=== PATIENT | female | born 1945 | race Caucasian/White ===

== ENCOUNTER 2016-08-02 18:51 | Emergency (ER) | payer MEDICARE, OTHER ==
--- NOTE | 2016-08-02 19:59 | ER Document Report ---
ED Medical Screen (RME) - General Stated Complaint: HEADACHE Time seen by provider: 19:56 Mode of Arrival: Ambulatory Information source: Patient Notes: 70-year-old female presents to ED for headache is not like her usual headaches. She states they usually start with tension this one feels like the blood vessels of blowing up in her head and her blood pressures been higher than normal. Patient states she's been nauseated, sensitive to light and noise, states she had some or perirectal up in her mouth but it didn't really throw up completely. States she's been treated by a neurologist for neck pain. She had a plate and 2 screws in her neck last year. Consulted Dr. Echevarria will get a CAT scan of the head. I have greeted and performed a rapid initial assessment of this patient. A comprehensive ED assessment and evaluation of the patient, analysis of test results and completion of medical decision making process will be conducted by an additional ED providers. TRAVEL OUTSIDE OF THE [place] IN LAST 30 DAYS: No - Related Data Allergies/Adverse Reactions: Penicillins Allergy (Severe, Verified 05/01/16 11:25) rash at site of contact latex Allergy (Verified 05/01/16 11:25) peanut Allergy (Verified 05/01/16 11:25) Trouble Breathing/Wheezing wheat Allergy (Verified 05/01/16 11:25) Trouble Breathing/Wheezing Metals Allergy (Intermediate, Uncoded 05/01/16 11:25) reports rash at site of contact Past Medical History - Past Medical History Cardiac Medical History: Reports: Hx Hypertension, Hx Heart Murmur Denies: Hx Atrial Fibrillation, Hx Congestive Heart Failure, Hx Coronary Artery Disease, Hx Heart Attack, Hx Hypercholesterolemia, Hx Peripheral Vascular Disease, Hx Pulmonary Embolism Pulmonary Medical History: Reports: Hx Asthma - uses inhalers, Hx Bronchitis, Hx COPD - DX ABOUT 20 YEARS AGO, Hx Pneumonia, Hx Sleep Apnea - does not use CPAP Denies: Hx Respiratory Failure, Hx Tuberculosis Neurological Medical History: Reports: Hx Migraine. Denies: Hx Cerebrovascular Accident, Hx Seizures Endocrine Medical History: Renal/ Medical History: Denies: Hx End Stage Renal Disease, Hx Kidney Stones, Hx Ovarian Cysts, Hx Peritoneal Dialysis, Hx Pelvic Inflammatory Disease Malignancy Medical History: Denies: Hx Breast Cancer, Hx Cervical Cancer, Hx Leukemia, Hx Lung Cancer, Hx Ovarian Cancer GI Medical History: Reports: Hx Diverticulitis, Hx Gastroesophageal Reflux Disease - 30 years-takes med, Hx Hiatal Hernia - "sliding", Hx Irritable Bowel. Denies: Hx Crohn's Disease, Hx Liver Failure, Hx Ulcer Musculoskeltal Medical History: Reports Hx Arthritis - DDD, Reports Hx Fibromyalgia - 20 yrs, Denies Hx Multiple Sclerosis, Denies Hx Muscular Dystrophy Psychiatric Medical History: Reports: Hx Anxiety, Hx Attention Deficit Hyperactivity Disorder, Hx Depression - Anxiety, Hx Post Traumatic Stress Disorder Denies: Hx Bipolar Disorder, Hx Dementia, Hx Schizophrenia Traumatic Medical History: Reports: Hx Fractures - neck-40 yrs ago Infectious Medical History: Denies: Hx HIV Past Surgical History: Reports: Hx Hysterectomy - partial, Hx Orthopedic Surgery - Right knee, Hx Tonsillectomy - as an adult. Denies: Hx Adenoidectomy , Hx Appendectomy - ? removed during hysterectomy ?, Hx Bowel Surgery, Hx Section, Hx Cholecystectomy, Hx Colostomy, Hx Coronary Artery Bypass Graft, Hx Gastric Bypass Surgery, Hx Herniorrhaphy, Hx Mastectomy, Hx Pacemaker , Hx Tubal Ligation - Immunizations Hx Diphtheria, Pertussis, Tetanus Vaccination: Yes Physical Exam - Vital signs Vitals: Temp Pulse Resp BP Pulse Ox 98.1 F 86 18 155/92 H 95 08/02/16 19:49 08/02/16 19:49 08/02/16 19:49 08/02/16 19:49 08/02/16 19:49 Course - Vital Signs Vital signs: Temp Pulse Resp BP Pulse Ox 98.1 F 86 18 155/92 H 95 08/02/16 19:49 08/02/16 19:49 08/02/16 19:49 08/02/16 19:49 08/02/16 19:49
[2016-08-03] MEDS ORDERED: KETOROLAC TROMETHAMINE INJ/PF 30 MG/1 ML SDV IV ONE (01:06)
[2016-08-03] MEDS ORDERED: PROCHLORPERAZINE EDISYLATE INJ 10 MG/2 ML VIAL IV ONE (01:06)
[2016-08-03] MEDS ORDERED: DIPHENHYDRAMINE HCL 50 MG/ML VIAL IV ONE (01:07)
--- NOTE | 2016-08-03 01:57 | ER Document Report ---
ED General - General Chief Complaint: Headache Stated Complaint: HEADACHE Mode of Arrival: Ambulatory Notes: Patient is a 70-year-old female with past medical history of fibromyalgia, RA, chronic migraine headaches who presents with a headache that has been present for 24 hours. States that the headache started yesterday and became gradually worse after onset. She describes as a pain primarily located on the right side of her head. It is a dull, constant, severe, throbbing pain. Nothing improves the pain. States the lights, sounds, no movement worsening headache. States this feels identical to prior episodes of her migraine headaches. She has not seen her primary care physician regarding today's concerns. TRAVEL OUTSIDE OF THE [place] IN LAST 30 DAYS: No - Related Data Allergies/Adverse Reactions: Penicillins Allergy (Severe, Verified 08/02/16 19:57) rash at site of contact latex Allergy (Verified 08/02/16 19:57) peanut Allergy (Verified 08/02/16 19:57) Trouble Breathing/Wheezing wheat Allergy (Verified 08/02/16 19:57) Trouble Breathing/Wheezing Metals Allergy (Intermediate, Uncoded 08/02/16 19:57) reports rash at site of contact Past Medical History - General Information source: Patient - Social History Smoking Status: Never Smoker Chew tobacco use (# tins/day): No Frequency of alcohol use: None Drug Abuse: None Family History: Reviewed & Not Pertinent Patient has suicidal ideation: No Patient has homicidal ideation: No - Past Medical History Cardiac Medical History: Reports: Hx Hypertension, Hx Heart Murmur Denies: Hx Atrial Fibrillation, Hx Congestive Heart Failure, Hx Coronary Artery Disease, Hx Heart Attack, Hx Hypercholesterolemia, Hx Peripheral Vascular Disease, Hx Pulmonary Embolism Pulmonary Medical History: Reports: Hx Asthma - uses inhalers, Hx Bronchitis, Hx COPD - DX ABOUT 20 YEARS AGO, Hx Pneumonia, Hx Sleep Apnea - does not use CPAP Denies: Hx Respiratory Failure, Hx Tuberculosis Neurological Medical History: Reports: Hx Migraine. Denies: Hx Cerebrovascular Accident, Hx Seizures Endocrine Medical History: Renal/ Medical History: Denies: Hx End Stage Renal Disease, Hx Kidney Stones, Hx Ovarian Cysts, Hx Peritoneal Dialysis, Hx Pelvic Inflammatory Disease Malignancy Medical History: Denies: Hx Breast Cancer, Hx Cervical Cancer, Hx Leukemia, Hx Lung Cancer, Hx Ovarian Cancer GI Medical History: Reports: Hx Diverticulitis, Hx Gastroesophageal Reflux Disease - 30 years-takes med, Hx Hiatal Hernia - "sliding", Hx Irritable Bowel. Denies: Hx Crohn's Disease, Hx Liver Failure, Hx Ulcer Musculoskeltal Medical History: Reports Hx Arthritis - DDD, Reports Hx Fibromyalgia - 20 yrs, Denies Hx Multiple Sclerosis, Denies Hx Muscular Dystrophy Psychiatric Medical History: Reports: Hx Anxiety, Hx Attention Deficit Hyperactivity Disorder, Hx Depression - Anxiety, Hx Post Traumatic Stress Disorder Denies: Hx Bipolar Disorder, Hx Dementia, Hx Schizophrenia Traumatic Medical History: Reports: Hx Fractures - neck-40 yrs ago Infectious Medical History: Denies: Hx HIV Past Surgical History: Reports: Hx Hysterectomy, Hx Orthopedic Surgery - Right knee, Hx Tonsillectomy - as an adult. Denies: Hx Adenoidectomy, Hx Appendectomy - ? removed during hysterectomy ?, Hx Bowel Surgery, Hx Section, Hx Cholecystectomy, Hx Colostomy, Hx Coronary Artery Bypass Graft, Hx Gastric Bypass Surgery, Hx Herniorrhaphy, Hx Mastectomy, Hx Pacemaker, Hx Tubal Ligation - Immunizations Hx Diphtheria, Pertussis, Tetanus Vaccination: Yes Hx Pneumococcal Vaccination: 01/09/10 Review of Systems - Review of Systems Notes: Constitutional: Negative for fever. HENT: Negative for sore throat. Eyes: Negative for visual changes. Cardiovascular: Negative for chest pain. Respiratory: Negative for shortness of breath. Gastrointestinal: Negative for abdominal pain, vomiting or diarrhea. Genitourinary: Negative for dysuria. Musculoskeletal: Negative for back pain. Skin: Negative for rash. Neurological: Positive for headaches, negative for weakness or numbness. 10 point ROS negative except as marked above and in HPI. Physical Exam - Vital signs Vitals: Temp Pulse Resp BP Pulse Ox 98.1 F 86 18 155/92 H 95 08/02/16 19:49 08/02/16 19:49 08/02/16 19:49 08/02/16 19:49 08/02/16 19:49 Interpretation: Hypertensive Notes: PHYSICAL EXAMINATION: GENERAL: Appears uncomfortable but in no acute distress. HEAD: Atraumatic, normocephalic. EYES: Pupils equal round and reactive to light, extraocular movements intact, sclera anicteric, conjunctiva are normal. ENT: nares patent, oropharynx clear without exudates. Moist mucous membranes. NECK: Normal range of motion, supple without lymphadenopathy LUNGS: Breath sounds clear to auscultation bilaterally and equal. No wheezes rales or rhonchi. HEART: Regular rate and rhythm without murmurs ABDOMEN: Soft, nontender, normoactive bowel sounds. No guarding, no rebound. No masses appreciated. EXTREMITIES: Normal range of motion, no pitting or edema. No cyanosis. NEUROLOGICAL: Face symmetric. Tongue protrudes midline. Extraocular motions intact. Pupils are 2 mm and equally reactive. Normal speech, normal gait. 5 out of 5 strength in both the distal and proximal upper and lower extremities bilaterally. Sensation is grossly intact throughout. Finger to nose testing normal. Pronator drift normal. PSYCH: Normal mood, normal affect. SKIN: Warm, Dry, normal turgor, no rashes or lesions noted. Course - Re-evaluation Re-evalutation: 08/03/16 01:56 Presentation of a headache that appears to be most consistent with tension versus migrainous type headache. Of note, contrary to triage note patient states that this migraine headache feels exactly like her prior migraine headaches. I do not believe a CT the head was indicated. Headache was not maximal in onset, patient has no focal neurologic deficits, no nuchal rigidity, vital signs within normal limits, no papilledema, and patient is overall well in appearance. Based on clinical history and examination I do not suspect an acute subarachnoid hemorrhage, dural venous sinus thrombosis, acute meningitis, or intercranial mass. Will proceed with headache cocktail and reassess. 08/03/16 02:39 Patient has had a complete resolution of her headache. She remains neurologically intact. Has tolerated oral intake. At this time will discharge with return precautions and follow-up recommendations. Verbal discharge instructions given a the bedside and opportunity for questions given. Medication warnings reviewed. Patient is in agreement with this plan and has verbalized understanding of return precautions and the need for primary care follow-up in the next 24-72 hours. - Vital Signs Vital signs: Temp Pulse Resp BP Pulse Ox 98.4 F 79 16 118/78 97 08/03/16 03:20 08/03/16 03:20 08/03/16 03:20 08/03/16 03:20 08/03/16 03:20 - Diagnostic Test Radiology reviewed: Reports reviewed Discharge - Discharge Clinical Impression: Migraine headache Qualifiers: Migraine type: unspecified Status migrainosus presence: with status migrainosus Intractability: not intractable Qualified Code(s): G43.901 - Migraine, unspecified, not intractable, with status migrainosus Condition: Good Disposition: HOME, SELF-CARE Additional Instructions: You were seen today for a migraine headache. Please follow-up with your primary care doctor regarding today's ED visit. Return to emergency department immediately if you develop a headache that gets to its maximum severity within 20 minutes of onset, you pass out, you develop weakness, numbness, changes in your vision, become unable to keep any fluids down for more than 12 hours, or develop a fever greater than 100.4 degrees Fahrenheit. Referrals: ALPHONSE GABRIEL PA-C [Primary Care Provider] - Follow up as needed
[2016-08-03 03:44] VITALS: BP 118/78
== END 2016-08-03 03:25 | disposition home or self-care (01) ==
LOC: ER 18:51
DX: G43.901 Migraine, unspecified, not intractable, with status migrainosus (principal); I10 Essential (primary) hypertension; J45.909 Unspecified asthma, uncomplicated; J44.9 Chronic obstructive pulmonary disease, unspecified; Z88.0 Allergy status to penicillin; Z91.040 Latex allergy status; Z91.010 Allergy to peanuts; Z90.710 Acquired absence of both cervix and uterus
CPT/HCPCS: 99283; 96374; 96375; 70450; J1200; J1885; J0780

== ENCOUNTER 2016-11-20 09:41 | Inpatient (IN) | payer MEDICARE, OTHER ==
[2016-11-20 10:19] LABS: VENOUS BLOOD BASE EXCESS 4.9 mmol/L; VENOUS BLOOD HCO3 30.2 mmol/L (20-32); VENOUS BLOOD PH 7.42 (7.30-7.42)
[2016-11-20 10:26] LABS: ABSOLUTE LYMPHOCYTES (AUTO) 0.7 10^3/uL (0.5-4.7); ABSOLUTE MONOCYTES (AUTO) 0.8 10^3/uL (0.1-1.4); BASOPHILS % (AUTO) 0.5 % (0-2); EOSINOPHILS % (AUTO) 0.2 % (0-6); HEMATOCRIT 30.2 % (36.0-47.0); HEMOGLOBIN 10.2 g/dL (12.0-15.5); HGB HCT DIFFERENCE 0.4; LYMPHOCYTES % (AUTO) 6.7 % (13-45); MEAN CORPUSCULAR HEMOGLOBIN 28.1 pg (27.0-33.4); MEAN CORPUSCULAR HGB CONC 33.7 g/dL (32.0-36.0); MEAN CORPUSCULAR VOLUME 83 fl (80-97); MONOCYTES % (AUTO) 7.2 % (3-13); RED BLOOD COUNT 3.63 10^6/uL (3.72-5.28); RED CELL DISTRIBUTION WIDTH 14.8 % (11.5-14.0); SEGMENTED NEUTROPHILS % (AUTO) 85.4 % (42-78); WHITE BLOOD COUNT 10.6 10^3/uL (4.0-10.5)
[2016-11-20] MEDS ORDERED: ACETAMINOPHEN 325 MG TABLET PO ONE (10:26)
[2016-11-20] MEDS ORDERED: ACETAMINOPHEN 325 MG TABLET ONE (10:27)
[2016-11-20 10:28] LABS: PROTHROMBIN TIME 15.6 SEC (11.4-15.4)
--- NOTE | 2016-11-20 10:34 | ER Document Report ---
ED General - General Chief Complaint: Trouble Voiding Stated Complaint: CHEST PAIN Time Seen by Provider: 11/20/16 09:56 Mode of Arrival: Medic Information source: Patient Notes: 70 yr odl female presents with complaints of right flank pain RUQ pain and fever of 4 day duration. pt admits to nausea , denies any chills TRAVEL OUTSIDE OF THE [place] IN LAST 30 DAYS: No - HPI Onset: Last week Onset/Duration: Persistent Quality of pain: No pain Severity: Mild Pain Level: 1 Associated symptoms: Fever Exacerbated by: Denies Relieved by: Denies Similar symptoms previously: No Recently seen / treated by doctor: No - Related Data Allergies/Adverse Reactions: Penicillins Allergy (Severe, Verified 08/02/16 19:57) rash at site of contact latex Allergy (Verified 08/02/16 19:57) peanut Allergy (Verified 08/02/16 19:57) Trouble Breathing/Wheezing wheat Allergy (Verified 08/02/16 19:57) Trouble Breathing/Wheezing Metals Allergy (Intermediate, Uncoded 08/02/16 19:57) reports rash at site of contact Past Medical History - Social History Smoking Status: Never Smoker Cigarette use (# per day): No Chew tobacco use (# tins/day): No Smoking Education Provided: No Family History: Reviewed & Not Pertinent - Past Medical History Cardiac Medical History: Reports: Hx Hypertension, Hx Heart Murmur Denies: Hx Atrial Fibrillation, Hx Congestive Heart Failure, Hx Coronary Artery Disease, Hx Heart Attack, Hx Hypercholesterolemia, Hx Peripheral Vascular Disease, Hx Pulmonary Embolism Pulmonary Medical History: Reports: Hx Asthma - uses inhalers, Hx Bronchitis, Hx COPD - DX ABOUT 20 YEARS AGO, Hx Pneumonia, Hx Sleep Apnea - does not use CPAP Denies: Hx Respiratory Failure, Hx Tuberculosis Neurological Medical History: Reports: Hx Migraine. Denies: Hx Cerebrovascular Accident, Hx Seizures Endocrine Medical History: Renal/ Medical History: Denies: Hx End Stage Renal Disease, Hx Kidney Stones, Hx Ovarian Cysts, Hx Peritoneal Dialysis, Hx Pelvic Inflammatory Disease Malignancy Medical History: Denies: Hx Breast Cancer, Hx Cervical Cancer, Hx Leukemia, Hx Lung Cancer, Hx Ovarian Cancer GI Medical History: Reports: Hx Diverticulitis, Hx Gastroesophageal Reflux Disease - 30 years-takes med, Hx Hiatal Hernia - "sliding", Hx Irritable Bowel. Denies: Hx Crohn's Disease, Hx Liver Failure, Hx Ulcer Musculoskeltal Medical History: Reports Hx Arthritis - DDD, Reports Hx Fibromyalgia - 20 yrs, Denies Hx Multiple Sclerosis, Denies Hx Muscular Dystrophy Psychiatric Medical History: Reports: Hx Anxiety, Hx Attention Deficit Hyperactivity Disorder, Hx Depression - Anxiety, Hx Post Traumatic Stress Disorder Denies: Hx Bipolar Disorder, Hx Dementia, Hx Schizophrenia Traumatic Medical History: Reports: Hx Fractures - neck-40 yrs ago Infectious Medical History: Denies: Hx HIV Past Surgical History: Reports: Hx Hysterectomy, Hx Orthopedic Surgery - Right knee, Hx Tonsillectomy - as an adult. Denies: Hx Adenoidectomy, Hx Appendectomy - ? removed during hysterectomy ?, Hx Bowel Surgery, Hx Section, Hx Cholecystectomy, Hx Colostomy, Hx Coronary Artery Bypass Graft, Hx Gastric Bypass Surgery, Hx Herniorrhaphy, Hx Mastectomy, Hx Pacemaker, Hx Tubal Ligation - Immunizations Hx Diphtheria, Pertussis, Tetanus Vaccination: Yes Hx Pneumococcal Vaccination: 01/09/10 Review of Systems - Review of Systems Notes: REVIEW OF SYSTEMS: CONSTITUTIONAL : admits to fever EENT: Denies eye, ear, throat, or mouth pain or symptoms. Denies nasal or sinus congestion or discharge. Denies throat, tongue, or mouth swelling or difficulty swallowing. CARDIOVASCULAR: Denies chest pain. Denies palpitations or racing or irregular heart beat. Denies ankle edema. RESPIRATORY: Denies cough, cold, or chest congestion. Denies shortness of breath, difficulty breathing, or wheezing. GASTROINTESTINAL: Denies abdominal pain or distention. Denies nausea, vomiting , or diarrhea. Denies blood in vomitus, stools, or per rectum. Denies black, tarry stools. Denies constipation. GENITOURINARY: right flank pain FEMALE GENITOURINARY: Denies vaginal bleeding, heavy or abnormal periods, irregular periods. Denies vaginal discharge or odor. MUSCULOSKELETAL: Denies back or neck pain or stiffness. Denies joint pain or swelling. SKIN: Denies rash, lesions or sores. HEMATOLOGIC : Denies easy bruising or bleeding. LYMPHATIC: Denies swollen, enlarged glands. NEUROLOGICAL: Denies confusion or altered mental status. Denies passing out or loss of consciousness. Denies dizziness or lightheadedness. Denies headache. Denies weakness or paralysis or loss of use of either side. Denies problems with gait or speech. Denies sensory loss, numbness, or tingling. Denies seizures. PHYSICAL EXAMINATION: GENERAL: Well-appearing, well-nourished and in no acute distress. febrile HEAD: Atraumatic, normocephalic. EYES: Pupils equal round and reactive to light, extraocular movements intact, conjunctiva are normal. ENT: Nares patent, oropharynx clear without exudates. Moist mucous membranes. NECK: Normal range of motion, supple without lymphadenopathy LUNGS: Breath sounds clear to auscultation bilaterally and equal. No wheezes rales or rhonchi. HEART: Regular rate and rhythm without murmurs ABDOMEN: Soft, RUQ tenderness , right cva tenderenss Female : deferred Musculoskeletal: Normal range of motion, no pitting or edema. No cyanosis. NEUROLOGICAL: Cranial nerves grossly intact. Normal speech, normal gait. Normal sensory, motor exams PSYCH: Normal mood, normal affect. SKIN: Warm, Dry, normal turgor, no rashes or lesions noted. PSYCHIATRIC: Denies anxiety or stress. Denies depression, suicidal ideation, or homicidal ideation. ALL OTHER SYSTEMS REVIEWED AND NEGATIVE. Dictation was performed using [employer] voice recognition software Physical Exam - Vital signs Vitals: Temp Pulse Resp BP Pulse Ox 103 F H 98 20 105/65 100 11/20/16 10:23 11/20/16 10:23 11/20/16 10:23 11/20/16 10:23 11/20/16 10:23 Course - Re-evaluation Re-evalutation: 11/20/16 10:33 Patient was noted to be hypotensive at urgent care prior to arrival, septic workup pending - Vital Signs Vital signs: Temp Pulse Resp BP Pulse Ox 98.4 F 98 20 105/65 100 11/20/16 11:56 11/20/16 10:23 11/20/16 10:23 11/20/16 10:23 11/20/16 10:23 - Laboratory Result Diagrams: 11/20/16 09:35 11/20/16 09:35 Laboratory results interpreted by me: 11/20/16 11/20/16 11/20/16 09:35 09:35 09:35 WBC 10.6 H RBC 3.63 L Hgb 10.2 L Hct 30.2 L RDW 14.8 H Plt Count 103 L Seg Neutrophils % 85.4 H Lymphocytes % 6.7 L Absolute Neutrophils 9.0 H PT 15.6 H Sodium 118.3 L* Chloride 86 L BUN 21 H Creatinine 2.02 H Est GFR ( Amer) 30 L Est GFR (Non-Af Amer) 24 L Lactic Acid Calcium 8.1 L Total Protein 4.9 L Albumin 2.5 L Urine Protein Urine Blood Ur Leukocyte Esterase 11/20/16 11/20/16 09:35 11:12 WBC RBC Hgb Hct RDW Plt Count Seg Neutrophils % Lymphocytes % Absolute Neutrophils PT Sodium Chloride BUN Creatinine Est GFR ( Amer) Est GFR (Non-Af Amer) Lactic Acid 0.6 L Calcium Total Protein Albumin Urine Protein 100 H Urine Blood SMALL H Ur Leukocyte Esterase LARGE H Critical Care Note - Critical Care Note Total time excluding time spent on procedures (mins): 34 Comments: minutes of critical care time spent in direct contact evaluating and reevaluating the patient, treating symptoms, reviewing labs and studies and speaking with family and consultants excluding any procedures Discharge - Discharge Clinical Impression: Pyelonephritis, Hyponatremia Fever Qualifiers: Fever type: unspecified Qualified Code(s): R50.9 - Fever, unspecified Hypotension Qualifiers: Hypotension type: unspecified hypotension type Qualified Code(s): I95.9 - Hypotension, unspecified Condition: Stable Disposition: ADMITTED INPATIENT Admitting Provider: Hospitalist Unit Admitted: Telemetry
[2016-11-20 10:38] LABS: ALANINE AMINOTRANSFERASE 28 U/L (9-52); ALBUMIN 2.5 g/dL (3.5-5.0); ALKALINE PHOSPHATASE 69 U/L (38-126); ANION GAP 5 (5-19); ASPARTATE AMINO TRANSFERASE 18 U/L (14-36); BILIRUBIN,DIRECT 0.3 mg/dL (0.0-0.4); BILIRUBIN,TOTAL 0.4 mg/dL (0.2-1.3); BLOOD UREA NITROGEN 21 mg/dL (7-20); CALCIUM 8.1 mg/dL (8.4-10.2); CARBON DIOXIDE 27 mmol/L (22-30); CHLORIDE 86 mmol/L (98-107); CREATININE RESULT 2.02 mg/dL (0.52-1.25); GLUCOSE 100 mg/dL (75-110); POTASSIUM 4.8 mmol/L (3.6-5.0); TOTAL PROTEIN 4.9 g/dL (6.3-8.2)
[2016-11-20 10:42] LABS: SODIUM 118.3 mmol/L (137-145)
[2016-11-20] MEDS ORDERED: NORMAL SALINE 1000 ML 1,000 ML IV PRN (10:44)
[2016-11-20 11:32] LABS: APPEARANCE,URINE TURBID; BILIRUBIN,URINE NEGATIVE (NEGATIVE); GLUCOSE, URINE NEGATIVE (NEGATIVE); KETONES,URINE NEGATIVE (NEGATIVE); LEUKOCYTE ESTERASE,URINE LARGE (NEGATIVE); NITRITE,URINE NEGATIVE (NEGATIVE); PROTEIN,URINE 100 mg/dL (NEGATIVE); URINE SPECIFIC GRAVITY 1.004; UROBILINOGEN,URINE NEGATIVE mg/dL (<2.0)
--- NOTE | 2016-11-20 11:35 | RADIOLOGY REPORT (SQ) ---
EXAM DESCRIPTION: CHEST PA/LAT COMPLETED DATE/TIME: 11/20/2016 10:58 am REASON FOR STUDY: temp COMPARISON: April 2016 EXAM PARAMETERS: NUMBER OF VIEWS: two views TECHNIQUE: Digital Frontal and Lateral radiographic views of the chest acquired. RADIATION DOSE: NA LIMITATIONS: none FINDINGS: LUNGS AND PLEURA: There is some minimal ill-defined increased density in the left lower eileen ng field which I cannot exclude as a developing infiltrate or atelectatic changes. Remaining lung fi elds are clear. No pleural effusions are identified. No pneumothorax is seen. MEDIASTINUM AND HILAR STRUCTURES: No masses or contour abnormalities. HEART AND VASCULAR STRUCTURES: Heart normal size. No evidence for failure. BONES: No acute findings. HARDWARE: None in the chest. OTHER: No other significant finding. IMPRESSION: Minimal left basilar density as noted above. Remaining lung sierra are clear. Other fi ndings as noted above TECHNICAL DOCUMENTATION: JOB ID: [id number] [employer]- All Rights Reserved
[2016-11-20] MEDS ORDERED: CEFTRIAXONE 1 GM/D5W RTU 50 ML IV ONE (12:07)
[2016-11-20] MEDS ORDERED: MORPHINE SULFATE 10 MG/ML INJ IV ONE (12:12)
[2016-11-20] MEDS ORDERED: ZOLPIDEM TARTRATE 5 MG TABLET PO PRN (12:30)
[2016-11-20] MEDS ORDERED: MAGNESIUM HYDROXIDE SUSP 30 ML UDCUP PO PRN (12:30)
[2016-11-20] MEDS ORDERED: OXYCODONE-ACETAMINOPHEN 5-325 MG TABLET PO PRN (12:30)
[2016-11-20] MEDS ORDERED: ACETAMINOPHEN 325 MG TABLET PO PRN (12:30)
[2016-11-20 14:45] LABS: ANION GAP 7 (5-19); BLOOD UREA NITROGEN 18 mg/dL (7-20); CALCIUM 7.9 mg/dL (8.4-10.2); CARBON DIOXIDE 25 mmol/L (22-30); CHLORIDE 90 mmol/L (98-107); CREATININE RESULT 1.53 mg/dL (0.52-1.25); GLUCOSE 100 mg/dL (75-110); POTASSIUM 4.2 mmol/L (3.6-5.0); SODIUM 121.6 mmol/L (137-145)
--- NOTE | 2016-11-20 15:18 | PDOC H&P ---
History of Present Illness Admission Date/PCP: 11/20/16 12:53 Patient complains of: Fever, trouble urinating and nausea x 4 days History of Present Illness: KIKE LATHAM is a 70 year old female with past medical history rheumatoid arthritis, fibromyalgia, GERD, migraines, essential hypertension, asthma and irritable bowel disorder; presents to [facility] emergency room this morning from a local urgent care after she presented with fever 4 days up to 103, and right flank pain. Her symptoms have worsened over time. She also complains of some nausea with no vomiting. She states she has not been eating or drinking well for the last 3 days. She denies any diarrhea or change in bowel habits. She also complains of some dizziness. She states she feels dehydrated. She is not on any suppressive therapy for her rheumatoid arthritis at the present time. She denies any prior history of urinary tract infections. Past Medical History Cardiac Medical History: Reports: Hypertension, Heart Murmur Denies: Atrial Fibrillation, Congestive Heart Failure, Coronary Artery Disease, Myocardial Infarction, Hyperlipidema, Peripheral Vascular Disease, Pulmonary Embolism Pulmonary Medical History: Reports: Asthma - uses inhalers, Bronchitis, Chronic Obstructive Pulmonary Disease (COPD) - DX ABOUT 20 YEARS AGO, Pneumonia, Sleep Apnea - does not use CPAP Denies: Respiratory Failure, Tuberculosis EENT Medical History: Reports: None Neurological Medical History: Reports: Migraine Denies: Seizures Endocrine Medical History: Reports: None Renal/ Medical History: Reports: None Denies: End Stage Renal Disease Malignancy Medical History: Reports: None Denies: Breast Cancer, Cervical Cancer, Leukemia, Lung Cancer, Ovarian Cancer GI Medical History: Reports: Diverticulitis, Gastroesophageal Reflux Disease - 30 years-takes med, Hiatal Hernia - "sliding" Denies: Crohn's Disease Musculoskeltal Medical History: Reports: Arthritis - DDD, Fibromyalgia - 20 yrs Skin Medical History: Reports: None Psychiatric Medical History: Reports: Attention Deficit Hyperactivity Disorder, Depression - Anxiety, Post Traumatic Stress Disorder Denies: Bipolar Disorder, Dementia Traumatic Medical History: Reports: None Hematology: Reports: Anemia Denies: Hemophilia, Sickle Cell Disease Infectious Medical History: Reports: None Denies: HIV Past Surgical History Past Surgical History: Reports: Hysterectomy, Orthopedic Surgery - Right knee, Tonsillectomy - as an adult Denies: Adenoidectomy, Amputation, Appendectomy - ? removed during hysterectomy ?, Section, Cholecystectomy, Colostomy, Coronary Artery Bypass Graft, Gastric Bypass Surgery, Herniorrhaphy, Mastectomy, Pacemaker, Tubal Ligation Social History Information Source: Patient Lives with: Alone Smoking Status: Never Smoker Frequency of Alcohol Use: None Hx Recreational Drug Use: No Hx Prescription Drug Abuse: No - Advance Directive Resuscitation Status: Do Not Resuscitate Family History Family History: Hypertension Parental Family History Reviewed: Yes Children Family History Reviewed: NA Sibling(s) Family History Reviewed.: Yes Medication/Allergy Allergies/Adverse Reactions: Penicillins Allergy (Severe, Verified 08/02/16 19:57) rash at site of contact latex Allergy (Verified 08/02/16 19:57) peanut Allergy (Verified 08/02/16 19:57) Trouble Breathing/Wheezing wheat Allergy (Verified 08/02/16 19:57) Trouble Breathing/Wheezing Metals Allergy (Intermediate, Uncoded 08/02/16 19:57) reports rash at site of contact Review of Systems Constitutional: PRESENT: anorexia, chills, fatigue, fever(s), weakness Eyes: ABSENT: visual disturbances Ears: ABSENT: hearing changes Cardiovascular: ABSENT: chest pain, dyspnea on exertion, edema, orthropnea, palpitations Respiratory: ABSENT: cough, hemoptysis Gastrointestinal: PRESENT: nausea Genitourinary: PRESENT: difficulty urinating, dysuria, other Musculoskeletal: PRESENT: back pain Integumentary: ABSENT: rash, wounds Neurological: ABSENT: abnormal gait, abnormal speech, confusion, dizziness, focal weakness, syncope Psychiatric: ABSENT: anxiety, depression, homidical ideation, suicidal ideation Endocrine: ABSENT: cold intolerance, heat intolerance, polydipsia, polyuria Hematologic/Lymphatic: ABSENT: easy bleeding, easy bruising Physical Exam Vital Signs: Temp Pulse Resp BP Pulse Ox 98.4 F 98 12 104/64 97 11/20/16 11:56 11/20/16 10:23 11/20/16 14:01 11/20/16 14:01 11/20/16 14:01 General appearance: PRESENT: no acute distress, thin, well-developed, well- nourished Head exam: PRESENT: atraumatic, normocephalic Eye exam: PRESENT: conjunctiva pink, EOMI, PERRLA. ABSENT: scleral icterus Ear exam: PRESENT: normal external ear exam Mouth exam: PRESENT: moist, tongue midline Neck exam: ABSENT: carotid bruit, JVD, lymphadenopathy, thyromegaly Respiratory exam: PRESENT: clear to auscultation annita. ABSENT: rales, rhonchi, wheezes Cardiovascular exam: PRESENT: RRR. ABSENT: diastolic murmur, rubs, systolic murmur Pulses: PRESENT: normal dorsalis pedis pul Vascular exam: PRESENT: normal capillary refill GI/Abdominal exam: PRESENT: normal bowel sounds, soft. ABSENT: distended, guarding, mass, organolmegaly, rebound, tenderness Rectal exam: PRESENT: deferred Extremities exam: PRESENT: full ROM. ABSENT: calf tenderness, clubbing, pedal edema Musculoskeletal exam: PRESENT: ambulatory, tenderness Neurological exam: PRESENT: alert, awake, oriented to person, oriented to place , oriented to time, oriented to situation, CN II-XII grossly intact. ABSENT: motor sensory deficit Psychiatric exam: PRESENT: appropriate affect, normal mood. ABSENT: homicidal ideation, suicidal ideation Skin exam: PRESENT: dry, intact, warm. ABSENT: cyanosis, rash Results Impressions: Chest X-Ray 11/20/16 09:51 IMPRESSION: Minimal left basilar density as noted above. Remaining lung sierra are clear. Other findings as noted above Assessment & Plan - Diagnosis (1) SIRS (systemic inflammatory response syndrome) Is this a current diagnosis for this admission?: YesPlan: Patient presented with fever of 102.7, and hypotension. Most likely secondary to pyelonephritis and dehydration. Will rehydrate with IV fluids broad spectrum IV antibiotics once blood cultures are obtained (3) Pyelonephritis Is this a current diagnosis for this admission?: Yes (4) Hypotension Qualifiers: Hypotension type: unspecified hypotension type Qualified Code(s): I95.9 - Hypotension, unspecified Is this a current diagnosis for this admission?: YesPlan: Resolved with 2 liters of IV fluids. Most likely secondary to infection and poor oral intake for the last 4 days (5) ASHISH (acute kidney injury) Is this a current diagnosis for this admission?: YesPlan: Most likely prerenal secondary to hypotension and dehydration. Will rehydrate and monitor. Avoid nephrotoxic medications and dosages (6) Rheumatoid arthritis Is this a current diagnosis for this admission?: Yes (7) Rheumatoid arthritis Qualifiers: Rheumatoid factor presence: unspecified presence Is this a current diagnosis for this admission?: YesPlan: Patient is not on any suppressive therapy at the present time. She takes tylenol or oxycodone for her symptoms - Time Time Spent: 50 to 70 Minutes Critical Time spent with patient: 25-34 minutes Medications reviewed and adjusted accordingly: Yes Anticipated discharge: Home - Inpatient Certification Based on my medical assessment, after consideration of the patient's comorbidities, presenting symptoms, or acuity I expect that the services needed warrant INPATIENT care.: Yes I certify that my determination is in accordance with my understanding of Medicare's requirements for reasonable and necessary INPATIENT services [42 CFR 412.3e].: Yes Medical Necessity: Need For IV Fluids, Need for IV Antibiotics, Risk of Complication if Not Cared For in Hospital
[2016-11-20] MEDS: NORMAL SALINE 1000 ML 1,000 ML IV PRN (16:39)
[2016-11-20] MEDS: DOCUSATE SODIUM 100 MG CAPSULE PO SCH (18:34)
[2016-11-20 18:35] LABS: ANION GAP 11 (5-19); BLOOD UREA NITROGEN 17 mg/dL (7-20); CALCIUM 8.5 mg/dL (8.4-10.2); CARBON DIOXIDE 24 mmol/L (22-30); CHLORIDE 89 mmol/L (98-107); CREATININE RESULT 1.22 mg/dL (0.52-1.25); GLUCOSE 131 mg/dL (75-110); POTASSIUM 3.8 mmol/L (3.6-5.0); SODIUM 123.6 mmol/L (137-145)
[2016-11-20 22:17] LABS: ANION GAP 8 (5-19); BLOOD UREA NITROGEN 15 mg/dL (7-20); CALCIUM 8.3 mg/dL (8.4-10.2); CARBON DIOXIDE 25 mmol/L (22-30); CHLORIDE 92 mmol/L (98-107); CREATININE RESULT 1.12 mg/dL (0.52-1.25); GLUCOSE 139 mg/dL (75-110); POTASSIUM 3.9 mmol/L (3.6-5.0); SODIUM 124.8 mmol/L (137-145)
--- NOTE | 2016-11-21 00:19 | EKG REPORT ---
SEVERITY:- NORMAL ECG - SINUS RHYTHM : Confirmed by: Tamera Velazquez 21-Nov-2016 00:18:55
[2016-11-21] MEDS: NORMAL SALINE 1000 ML 1,000 ML IV PRN (04:44)
[2016-11-21 07:20] LABS: ALANINE AMINOTRANSFERASE 32 U/L (9-52); ALBUMIN 2.6 g/dL (3.5-5.0); ALKALINE PHOSPHATASE 85 U/L (38-126); ANION GAP 7 (5-19); ASPARTATE AMINO TRANSFERASE 17 U/L (14-36); BILIRUBIN,DIRECT 0.3 mg/dL (0.0-0.4); BILIRUBIN,TOTAL 0.3 mg/dL (0.2-1.3); BLOOD UREA NITROGEN 12 mg/dL (7-20); CALCIUM 8.6 mg/dL (8.4-10.2); CARBON DIOXIDE 26 mmol/L (22-30); CHLORIDE 97 mmol/L (98-107); CREATININE RESULT 0.91 mg/dL (0.52-1.25); GLUCOSE 106 mg/dL (75-110); POTASSIUM 4.7 mmol/L (3.6-5.0); SODIUM 129.9 mmol/L (137-145)
[2016-11-21 09:39] LABS: HEMATOCRIT 32.7 % (36.0-47.0); HEMOGLOBIN 10.9 g/dL (12.0-15.5); MEAN CORPUSCULAR HEMOGLOBIN 27.8 pg (27.0-33.4); MEAN CORPUSCULAR HGB CONC 33.4 g/dL (32.0-36.0); MEAN CORPUSCULAR VOLUME 83 fl (80-97); RED BLOOD COUNT 3.92 10^6/uL (3.72-5.28); RED CELL DISTRIBUTION WIDTH 14.9 % (11.5-14.0); WHITE BLOOD COUNT 9.3 10^3/uL (4.0-10.5)
[2016-11-21] MEDS ORDERED: DIAZEPAM 5 MG TABLET PO PRN (09:39)
[2016-11-21] MEDS ORDERED: HYDROXYZINE PAMOATE 25 MG CAPSULE PO PRN (09:39)
[2016-11-21] MEDS ORDERED: TIZANIDINE HCL 4 MG TABLET PO PRN (09:39)
[2016-11-21] MEDS ORDERED: OXYCODONE HCL IR 5 MG TABLET PO PRN (09:58)
--- NOTE | 2016-11-21 10:26 | PROGRESS NOTE E ---
Progress Note NAME: KIKE LATHAM : 1945 AGE: 70Y DATE: 11/21/2016 ROOM: 314 SUBJECTIVE: The patient is currently lying in bed. She states she feels much better today. According to her family member who is present at the bedside, the patient is much more lucid and had episodes of confusion yesterday which appears to have resolved. The patient denies any nausea, vomiting, diarrhea. No shortness of breath, dizziness, or chest pain. No fever or chills. The patient has been afebrile. Her blood pressures have been in a good range. The patient does not voice any other concerns at this time. REVIEW OF SYSTEMS: Rest of the review of systems negative. MEDICATIONS: Have been reviewed. OBJECTIVE: GENERAL: The patient is a 70-year-old female who is awake, alert, and oriented to person, place, time, and situation. She is verbal, conversational, ambulatory, and does not appear to be in any acute distress. VITAL SIGNS: Temperature 99.1, pulse 92, respirations 19, blood pressure 131/74, oxygen saturation is 97% on room air. SKIN: Warm and dry. No rash. Not diaphoretic. HEENT: Pupils equal, round, reactive to light and accommodation. Conjunctivae are pink. NECK: No JVP. CARDIOVASCULAR: Heart is regular with no murmur or rub. CHEST: Clear, symmetrical, unlabored. ABDOMEN: Soft, nontender, nondistended. BACK: No CVA tenderness or sacral edema. EXTREMITIES: No clubbing, cyanosis, or edema. PSYCHIATRIC: Appropriate affect. Pleasant mood. DIAGNOSTICS: Lab values are as follow: Hematology obtained on 11/21/2016 is pending. Chemistry obtained on 11/21/2016: Sodium 129, potassium 4.7, chloride is 97, carbon dioxide 26, BUN 12, creatinine is 0.91, glucose 106, calcium 8.6, bilirubin is 0.3, AST 17, ALT is 32, alk phos 85, total protein 5.0, albumin 2.6. IMPRESSION AND PLAN: 1. PYELONEPHRITIS. Currently awaiting urine culture. Will continue Rocephin for now since the patient has been responsive to this and await culture and sensitivity. 2. GRAM NEGATIVE YUDI BACTEREMIA MOST LIKELY SECONDARY TO #1. Will continue Rocephin for now since the patient has shown improvement in symptoms. Repeat blood cultures and follow. 3. SIRS SECONDARY TO THE ABOVE PER HER OWN ADMISSION. Will continue IV antibiotic therapy and follow. 4. ACUTE KIDNEY INJURY MOST LIKELY PRERENAL AZOTEMIA SECONDARY TO DEHYDRATION. The patient's creatinine has returned to baseline, therefore, will discontinue IV fluids after the current bag is completed. 5. RHEUMATOID ARTHRITIS. Will continue the patient's home medications for pain. 6. HYPONATREMIA. Most likely this is secondary to diuretic therapy. Will repeat chemistries in the a.m. and follow. 7. OPIATE DEPENDENCY. Will continue the patient's home medications. 8. POLYPHARMACY. Will monitor judiciously given the patient's recent confusion. 9. DVT PROPHYLAXIS. Will continue Lovenox. DISPOSITION: The patient is a FULL CODE. Pending patient's symptomatology and diagnostic findings, will reevaluate in the a.m. Time spent on this followup including assessment, plan, physical examination, patient education is 25 minutes. DICTATING PHYSICIAN: ALFONZO BLANTON NP [id number] PHY#: [id number] ID: [id number] JOB#: [id number] ACCT: [id number] cc: > MTDD
[2016-11-21 10:37] LABS: ACANTHOCYTES SLIGHT; BAND NEUTROPHILS % (MANUAL) 2 % (3-5); BASOPHILS % (MANUAL) 0 % (0-2); BURR CELLS 1+; EOSINOPHILS % (MANUAL) 0 % (0-6); HYPOCHROMASIA SLIGHT; LYMPHOCYTES % (MANUAL) 0 % (13-45); OVALOCYTES 1+; POIKILOCYTOSIS 2+; SCHISTOCYTES 1+; TOTAL CELLS COUNTED 100
[2016-11-21 10:38] LABS: POLYCHROMASIA SLIGHT; TOXIC GRANULATION SLIGHT; TOXIC VACUOLATION PRESENT
[2016-11-21] MEDS: DOCUSATE SODIUM 100 MG CAPSULE PO SCH ×2 (10:45→16:50)
[2016-11-21] MEDS: ASPIRIN 81 MG TABLET, ENT COATED PO SCH (10:45)
[2016-11-21] MEDS: CEFTRIAXONE 1 GM/D5W RTU 1 GM/50 ML RTUPB IV SCH (10:46)
[2016-11-21] MEDS: ENOXAPARIN SODIUM INJ 30 MG/0.3 ML DISP.SYRIN SUBCUT SCH (10:54)
[2016-11-21] MEDS ORDERED: VALSARTAN 40 MG TABLET PO ONE (11:00)
[2016-11-21] MEDS: ONDANSETRON HCL INJ/PF 4 MG/2 ML SDV IV PRN (16:51)
[2016-11-21] MEDS: GABAPENTIN 300 MG CAPSULE PO SCH (22:18)
[2016-11-21] MEDS: TRAZODONE HCL 50 MG TABLET PO SCH (22:22)
[2016-11-22 05:20] LABS: ANION GAP 7 (5-19); BLOOD UREA NITROGEN 6 mg/dL (7-20); CALCIUM 8.8 mg/dL (8.4-10.2); CARBON DIOXIDE 28 mmol/L (22-30); CHLORIDE 96 mmol/L (98-107); CREATININE RESULT 0.66 mg/dL (0.52-1.25); GLUCOSE 100 mg/dL (75-110); MAGNESIUM 1.8 mg/dL (1.6-2.3); SODIUM 130.5 mmol/L (137-145)
[2016-11-22] MEDS: ENOXAPARIN SODIUM INJ 30 MG/0.3 ML DISP.SYRIN SUBCUT SCH (08:43)
[2016-11-22] MEDS: LANSOPRAZOLE 30 MG TAB.RAP.DR PO SCH (08:43)
[2016-11-22] MEDS: VALSARTAN 40 MG TABLET PO SCH (10:34)
[2016-11-22] MEDS: ASPIRIN 81 MG TABLET, ENT COATED PO SCH (10:34)
[2016-11-22] MEDS: CEFTRIAXONE 1 GM/D5W RTU 1 GM/50 ML RTUPB IV SCH (10:34)
[2016-11-22] MEDS: DOCUSATE SODIUM 100 MG CAPSULE PO SCH ×2 (10:35→17:16)
--- NOTE | 2016-11-22 11:53 | PROGRESS NOTE E ---
Progress Note NAME: KIKE LATHAM : 1945 AGE: 70Y DATE: 11/22/2016 ROOM: 314 SUBJECTIVE: The patient is currently lying in bed. She states she feels much better than she did yesterday. She denies any nausea, vomiting. No diarrhea, shortness of breath, dizziness, chest pain. No fevers, chills. The patient has been afebrile. Her blood pressure has been in a good range, and the patient does not voice any other concerns at this time. REVIEW OF SYSTEMS: The rest of the review of systems is negative. MEDICATIONS: Medications have been reviewed. OBJECTIVE: GENERAL: The patient is a 70-year-old female who is awake, alert, and oriented to person, place, time, and situation. She is verbal and conversational with just a little delay. She does not appear to be in any acute distress. VITAL SIGNS: Temperature is 98.8, pulse 85, respirations 16, blood pressure is 137/73, oxygen saturation is 95% on room air. SKIN: Warm and dry. No rash. She is not diaphoretic. HEENT: Pupils equal, round, and reactive to light and accommodation. Conjunctivae pink. NECK: No JVD. CARDIOVASCULAR SYSTEM: Heart is regular. There is no murmur or rub. CHEST: Clear, symmetrical, unlabored. ABDOMEN: Soft, nontender, and nondistended. BACK: No CVA tenderness or sacral edema. EXTREMITIES: No clubbing, cyanosis, edema. PSYCHIATRIC: Appropriate affect, pleasant mood. DIAGNOSTIC DATA: Lab values are as follows: Hematology obtained on 11/21/2016: WBC's are 9.3; hemoglobin is 10.9; hematocrit is 32.7; platelet count is 96,000. Chemistries obtained on 11/22/2016: Sodium is 135, potassium is 4.0, chloride is 96, carbon dioxide 28, BUN 6, creatinine is 0.68, glucose 100, calcium is 8.8, magnesium is 1.8. Microbiology: Blood cultures obtained on 11/20/2016 reveal E. coli. Urine culture obtained on 11/20/2016 reveals E. coli. IMPRESSION AND PLAN: 1. PYELONEPHRITIS. The patient has responded nicely to Rocephin. It does appear to be a wilks-sensitive E. coli. Will complete 3 days of IV antibiotic therapy and follow. 2. E. COLI BACTEREMIA SECONDARY TO #1. Once again, will continue Rocephin for now. The patient has had resolution of her symptoms. Will repeat blood cultures and follow. 3. SIRS SECONDARY PER THE ABOVE, PRESENT ON ADMISSION. Will continue IV antibiotic therapy and follow. 4. ACUTE KIDNEY INJURY, MOST LIKELY PRERENAL AZOTEMIA SECONDARY TO DEHYDRATION. Patient's creatinine has returned to baseline, therefore, IV antibiotics have been discontinued. Will follow. 5. RHEUMATOID ARTHRITIS. Will continue the patient's home medication. 6. HYPONATREMIA. FEEL THIS IS MOST LIKELY SECONDARY TO HYDROCHLOROTHIAZIDE. THIS HAS IMPROVED WITH STOPPING MEDICATIONS. Will follow this. 7. OPIOID DEPENDENCY. Will continue the patient's home medication. 8. POLYPHARMACY. Will monitor judiciously given the patient's recent confusion. 9. DVT PROPHYLAXIS. Will continue Lovenox. DISPOSITION: The patient is a FULL CODE. Pending the patient's symptomatology and diagnostic findings, will reevaluate in the a.m. for possible discharge. The patient can be downgraded to a medical bed. TIME: Time spent on this followup including assessment, plan, physical examination, and patient education was 25 minutes. DICTATING PHYSICIAN: ALFONZO BLANTON NP [id number] PHY#: [id number] ID: [id number] JOB#: [id number] ACCT: [id number] cc: >
[2016-11-22] MEDS: TRAZODONE HCL 50 MG TABLET PO SCH (21:56)
[2016-11-22] MEDS: GABAPENTIN 300 MG CAPSULE PO SCH (21:56)
[2016-11-23] MEDS: ENOXAPARIN SODIUM INJ 30 MG/0.3 ML DISP.SYRIN SUBCUT SCH (09:25)
[2016-11-23] MEDS: CEFTRIAXONE 1 GM/D5W RTU 1 GM/50 ML RTUPB IV SCH (09:29)
[2016-11-23] MEDS: DOCUSATE SODIUM 100 MG CAPSULE PO SCH ×2 (09:30→17:13)
[2016-11-23] MEDS: ASPIRIN 81 MG TABLET, ENT COATED PO SCH (09:30)
[2016-11-23] MEDS: VALSARTAN 40 MG TABLET PO SCH (09:30)
[2016-11-23] MEDS: LANSOPRAZOLE 30 MG TAB.RAP.DR PO SCH (09:30)
[2016-11-23] MEDS ORDERED: ALBUTEROL SULFATE 0.042% NEB (1.25 MG/3 ML) AMPUL NEB PRN (10:02)
[2016-11-23] MEDS ORDERED: METHYLPREDNISOLONE INJ 40 MG/1 ML SDV IV ONE (10:15)
[2016-11-23] MEDS ORDERED: ALBUTEROL SULFATE 0.083% NEB 2.5 MG/3 ML AMPUL NEB ONE (10:15)
[2016-11-23] MEDS: AZITHROMYCIN 500 MG in DEXTROSE 5%-WATER 250 ML IV SCH (10:37)
--- NOTE | 2016-11-23 11:02 | RADIOLOGY REPORT (SQ) ---
EXAM DESCRIPTION: CHEST PA/LAT COMPLETED DATE/TIME: 11/23/2016 10:54 am REASON FOR STUDY: Dyspnea, hypoxia COMPARISON: CT angio chest 06/23/2013 Chest films 06/23/2013, 04/10/2014, 04/18/2015, 01/07/2016, 11/20/2016 EXAM PARAMETERS: NUMBER OF VIEWS: two views TECHNIQUE: Digital Frontal and Lateral radiographic views of the chest acquired. RADIATION DOSE: NA LIMITATIONS: none FINDINGS: LUNGS AND PLEURA: Upper lobes are hyperlucent from obstructive disease. Mild flattening t he hemidiaphragms. Hazy opacity projected over the cardiac apex is 8 benign epicardial fat pad unchanged from old prior studies. No acute infiltrates. No pleural effusion. No pneumothorax. MEDIASTINUM AND HILAR STRUCTURES: No masses or contour abnormalities. HEART AND VASCULAR STRUCTURES: Heart normal size. No evidence for failure. BONES: No acute findings. HARDWARE: None in the chest. OTHER: No other significant finding. IMPRESSION: Obstructive lung disease. No acute findings. TECHNICAL DOCUMENTATION: JOB ID: [id number] [employer]- All Rights Reserved
[2016-11-23] MEDS: METHYLPREDNISOLONE INJ 40 MG/1 ML SDV IV SCH ×2 (15:20→21:42)
--- NOTE | 2016-11-23 15:49 | PROGRESS NOTE E ---
Progress Note NAME: KIKE LATHAM : 1945 AGE: 70Y DATE: 11/23/2016 ROOM: 534 SUBJECTIVE: The patient is lying in bed. She states that she feels overall much better than when she came in, however, her shortness of breath has increased. The patient denies any nausea, vomiting, diarrhea, dizziness, chest pain. No fever or chills. The patient has been afebrile. Blood pressure has been in a good range and the patient does not voice any other concerns at this time. BRIEF HISTORY: The patient is a 70-year-old female with a past medical history of fibromyalgia and COPD. The patient presented to the emergency department with a chief complaint of general malaise. The patient was found to have pyelonephritis and bacteremia. The patient has been started on Rocephin IV and repeat blood cultures as of today have been unremarkable. The patient's symptoms are overall improved; however, today the patient became increasingly dyspneic and was found to be wheezing and discharge has been deferred for now. REVIEW OF SYSTEMS: Rest of the review of systems negative. MEDICATIONS: Have been reviewed. OBJECTIVE: GENERAL: The patient is a 70-year-old female who is awake, alert, and oriented to person, place, and situation. She is verbal, conversational, and does not appear to be in any acute distress. VITAL SIGNS: Temperature 98.4, pulse 95, respirations 17, blood pressure 138/72, oxygen saturation is 95% on room air. SKIN: Warm and dry. No rash. Not diaphoretic. HEENT: Pupils equal, round, reactive to light and accommodation. Conjunctivae are pink. No JVP. CARDIOVASCULAR: Heart is regular with no murmur or rub. CHEST: Patient does have expiratory wheezes noted throughout both lung sierra. Symmetrical and unlabored. ABDOMEN: Soft, nontender, nondistended. BACK: No CVA tenderness or sacral edema. EXTREMITIES: No clubbing, cyanosis, or edema. PSYCHIATRIC: Appropriate affect. Pleasant mood. DIAGNOSTICS: Lab values are as follows: Hematology obtained on 11/21/2016: WBCs are 9.3, hemoglobin is 10.9, hematocrit is 32.7, platelet count is 96,000. Chemistries obtained on 11/22/2016: Sodium is 130, potassium is 4.0, chloride is 96, carbon dioxide 28, BUN 6, creatinine is 0.68, glucose 100, calcium is 8.8, magnesium is 1.8. BNP is 326. IMPRESSION AND PLAN: 1. PYELONEPHRITIS. The patient has responded nicely to Rocephin. Will transition to Ceftin in the a.m. given it is pansensitive E. coli and follow. 2. E. COLI BACTEREMIA SECONDARY TO #1. Once again, repeat cultures have been negative. Will transition to oral antibiotics. 3. SIRS SECONDARY TO THE ABOVE, PRESENT ON ADMISSION. Continue current therapy. Overall much improved. 4. ACUTE KIDNEY INJURY MOST LIKELY PRERENAL AZOTEMIA DUE TO DEHYDRATION. Patient's creatinine is now at baseline. IV antibiotics have been discontinued. Will follow. 5. ACUTE CHRONIC OBSTRUCTIVE PULMONARY DISEASE EXACERBATION. Will add p.r.n. nebulizers as well as steroids given the patient's wheezing and will obtain chest x-ray. The patient at this time has not been hypoxic and is not significantly tachypneic. Will also cover with a dose of Zithromax. 6. RHEUMATOID ARTHRITIS. Continue the home medication. 7. HYPONATREMIA MOST LIKELY DUE TO HYDROCHLOROTHIAZIDE. Have stopped this. Will follow this. 8. OPIOID DEPENDENCY. Have continued the home medication. 9. POLYPHARMACY. Will monitor judiciously given the patient's recent confusion. 10. DVT PROPHYLAXIS. Will continue Lovenox. DISPOSITION: The patient is a FULL CODE. Pending patient's symptomatology and diagnostic findings, will reevaluate in the a.m. for discharge. Time spent on this followup including assessment, plan, physical examination, patient education is 25 minutes. DICTATING PHYSICIAN: ALFONZO BLANTON NP [id number] PHY#: [id number] ID: [id number] JOB#: [id number] ACCT: [id number] cc: >
[2016-11-23] MEDS: TRAZODONE HCL 50 MG TABLET PO SCH (21:42)
[2016-11-23] MEDS: GABAPENTIN 300 MG CAPSULE PO SCH (21:42)
[2016-11-24 05:07] LABS: ANION GAP 7 (5-19); BLOOD UREA NITROGEN 7 mg/dL (7-20); CALCIUM 9.1 mg/dL (8.4-10.2); CARBON DIOXIDE 31 mmol/L (22-30); CHLORIDE 95 mmol/L (98-107); CREATININE RESULT 0.58 mg/dL (0.52-1.25); GLUCOSE 129 mg/dL (75-110); MAGNESIUM 1.9 mg/dL (1.6-2.3); POTASSIUM 4.3 mmol/L (3.6-5.0); SODIUM 132.5 mmol/L (137-145)
[2016-11-24] MEDS: METHYLPREDNISOLONE INJ 40 MG/1 ML SDV IV SCH (06:04)
[2016-11-24] MEDS: LANSOPRAZOLE 30 MG TAB.RAP.DR PO SCH (10:30)
[2016-11-24] MEDS: ASPIRIN 81 MG TABLET, ENT COATED PO SCH (10:30)
[2016-11-24] MEDS: CEFTRIAXONE 1 GM/D5W RTU 1 GM/50 ML RTUPB IV SCH (10:30)
[2016-11-24] MEDS: DOCUSATE SODIUM 100 MG CAPSULE PO SCH (10:30)
[2016-11-24] MEDS: AZITHROMYCIN 500 MG in DEXTROSE 5%-WATER 250 ML IV SCH (10:32)
[2016-11-24] MEDS: ENOXAPARIN SODIUM INJ 30 MG/0.3 ML DISP.SYRIN SUBCUT SCH (10:35)
[2016-11-24] MEDS: ONDANSETRON HCL INJ/PF 4 MG/2 ML SDV IV PRN (11:23)
[2016-11-24] MEDS ORDERED: KETOROLAC TROMETHAMINE INJ/PF 30 MG/1 ML SDV IV PRN (11:40)
[2016-11-24] MEDS: VALSARTAN 40 MG TABLET PO SCH (14:15)
[2016-11-24 14:31] VITALS: BP 146/82
--- NOTE | 2016-11-24 14:55 | PDOC DISCHARGE SUMMARY ---
General - Admit/Disc Date/PCP Admission Date/Primary Care Provider: 11/20/16 12:33 Discharge Date: 11/24/16 - Discharge Diagnosis (1) SIRS (systemic inflammatory response syndrome) Is this a current diagnosis for this admission?: YesSummary: Resolved (2) Hyponatremia Is this a current diagnosis for this admission?: YesSummary: Resolving with discontinuation of HCTZ (3) Pyelonephritis Is this a current diagnosis for this admission?: YesSummary: Continue oral levaquin 500 mg daily for 7 days (4) Hypotension Is this a current diagnosis for this admission?: YesSummary: Resolved (5) ASHISH (acute kidney injury) Is this a current diagnosis for this admission?: YesSummary: Resolved (6) Rheumatoid arthritis Is this a current diagnosis for this admission?: Yes (7) Rheumatoid arthritis Is this a current diagnosis for this admission?: YesSummary: Continue current medications - Additional Information Resuscitation Status: Full Code Discharge Diet: Regular Discharge Activity: Activity As Tolerated, Balance Activity w/Rest Home Medications: Aspirin [Aspirin EC] 81 mg PO DAILY 11/20/16 Diazepam [Valium 5 mg Tablet] 5 mg PO HSP PRN 11/20/16 Esomeprazole Magnesium [Nexium] 40 mg PO ACBRKFST 11/20/16 Gabapentin [Neurontin] 600 mg PO QHS 11/20/16 Hydroxyzine Pamoate [Vistaril 25 mg Capsule] 25 mg PO Q8HP PRN 11/20/16 Oxycodone HCl 15 mg PO Q6HP PRN 11/20/16 Tizanidine HCl [Zanaflex 4 mg Tablet] 4 mg PO Q12HP PRN 11/20/16 Trazodone HCl [Desyrel 50 mg Tablet] 150 mg PO QHS 11/20/16 Valsartan [Diovan 40 mg Tablet] 40 mg PO DAILY 11/20/16 Levofloxacin [Levaquin 500 mg Tablet] 500 mg PO DAILY #7 tablet 11/24/16 History of Present Illness Patient complains of: Back pain, fever and weakness History of Present Illness: KIKE LATHAM is a 70 year old female with past medical history rheumatoid arthritis, fibromyalgia, GERD, migraines, essential hypertension, asthma and irritable bowel disorder; presents to [facility] emergency room this morning from a local urgent care after she presented with fever 4 days up to 103, and right flank pain. Her symptoms have worsened over time. She also complains of some nausea with no vomiting. She states she has not been eating or drinking well for the last 3 days. She denies any diarrhea or change in bowel habits. She also complains of some dizziness. She states she feels dehydrated. She is not on any suppressive therapy for her rheumatoid arthritis at the present time. She denies any prior history of urinary tract infections. Hospital Course Hospital Course: Patient was admitted to the hospitalist service on telemetry. She was given IV broad-spectrum antibiotics and IV hydration. Urine culture and blood cultures are pending. Urinalysis is positive for large amount leukocytes, moderate amount of blood, and positive for nitrates. Following day her BUN/creatinine had improved with IV hydration. Hydrochlorothiazide was discontinued due to significant hyponatremia with a sodium of 123. Blood cultures 1 were positive for E. coli. Urine culture was positive for greater than 100,000 colonies of E. coli. Postop day 3 she began having increasing shortness of breath and dyspnea. Room air oxygen saturations were 95%. She was started on nebulizer treatment. Chest x-ray was obtained which was unremarkable for any infiltrates or effusions. She was given IV Solu-Medrol for wheezing. Today her breathing has improved. She continues to have mild back discomfort. This is improved with oral pain medicine. She otherwise feels well and ready for discharge. Physical Exam Vital Signs: Temp Pulse Resp BP Pulse Ox 97.9 F 74 20 146/82 H 95 11/24/16 14:25 11/24/16 14:25 11/24/16 14:25 11/24/16 14:25 11/24/16 14:25 Intake & Output 11/23/16 11/24/16 11/25/16 06:59 06:59 06:59 Intake Total 600 2029 940 Balance 600 2029 940 Weight 79.1 kg 79 kg General appearance: PRESENT: no acute distress, obese, well-developed, well- nourished Head exam: PRESENT: atraumatic, normocephalic Eye exam: PRESENT: conjunctiva pink, EOMI, PERRLA. ABSENT: scleral icterus Ear exam: PRESENT: normal external ear exam Mouth exam: PRESENT: moist, tongue midline Neck exam: ABSENT: carotid bruit, JVD, lymphadenopathy, thyromegaly Respiratory exam: PRESENT: clear to auscultation annita. ABSENT: rales, rhonchi, wheezes Cardiovascular exam: PRESENT: RRR. ABSENT: diastolic murmur, rubs, systolic murmur Pulses: PRESENT: normal dorsalis pedis pul Vascular exam: PRESENT: normal capillary refill GI/Abdominal exam: PRESENT: normal bowel sounds, soft. ABSENT: distended, guarding, mass, organolmegaly, rebound, tenderness Rectal exam: PRESENT: deferred Extremities exam: PRESENT: full ROM. ABSENT: calf tenderness, clubbing, pedal edema Neurological exam: PRESENT: alert, awake, oriented to person, oriented to place , oriented to time, oriented to situation, CN II-XII grossly intact. ABSENT: motor sensory deficit Psychiatric exam: PRESENT: appropriate affect, normal mood. ABSENT: homicidal ideation, suicidal ideation Skin exam: PRESENT: dry, intact, warm. ABSENT: cyanosis, rash Results Laboratory Results: 11/21/16 06:17 11/24/16 04:00 11/24/16 04:00 Sodium 132.5 L Potassium 4.3 Chloride 95 L Carbon Dioxide 31 H Anion Gap 7 BUN 7 Creatinine 0.58 Est GFR ( Amer) > 60 Est GFR (Non-Af Amer) > 60 Glucose 129 H Calcium 9.1 Magnesium 1.9 11/23/16 10:22 NT-Pro-B Natriuret Pep 326 Impressions: Chest X-Ray 11/23/16 00:00 IMPRESSION: Obstructive lung disease. No acute findings. Qualifiers PATEINT BEING DISCHARGED WITH ANY OF THE FOLLOWING DIAGNOSIS?: No Plan Discharge Plan: Discharge home with family Time Spent: Less than 30 Minutes
[2016-11-25] MEDS ORDERED: PREDNISONE 20 MG TABLET PO SCH (10:00)
== END 2016-11-24 15:40 | disposition home or self-care (01) | DRG 690 ==
LOC: ER 09:41 → EH 12:33 → UNDOADMIN 12:53 → 3W 11-21 04:42 → 5 11-22 17:50
PROVIDERS: ADMIT Family Medicine; ATTEND Family Medicine
DX: N12 Tubulo-interstitial nephritis, not specified as acute or chronic (principal); B96.20 Unspecified Escherichia coli [E. coli] as the cause of diseases classified elsewhere; E87.1 Hypo-osmolality and hyponatremia; J44.1 Chronic obstructive pulmonary disease with (acute) exacerbation; F11.20 Opioid dependence, uncomplicated; E86.0 Dehydration; I95.9 Hypotension, unspecified; N17.9 Acute kidney failure, unspecified; T50.2X5A Adverse effect of carbonic-anhydrase inhibitors, benzothiadiazides and other diuretics, initial encounter; Y92.9 Unspecified place or not applicable; M06.9 Rheumatoid arthritis, unspecified; I10 Essential (primary) hypertension; G43.909 Migraine, unspecified, not intractable, without status migrainosus; K21.9 Gastro-esophageal reflux disease without esophagitis; K44.9 Diaphragmatic hernia without obstruction or gangrene; D64.9 Anemia, unspecified; M19.90 Unspecified osteoarthritis, unspecified site; M79.7 Fibromyalgia; F90.9 Attention-deficit hyperactivity disorder, unspecified type; F32.9 Major depressive disorder, single episode, unspecified; F43.10 Post-traumatic stress disorder, unspecified; Z90.710 Acquired absence of both cervix and uterus; Z88.0 Allergy status to penicillin; Z91.040 Latex allergy status; Z91.010 Allergy to peanuts; Z91.018 Allergy to other foods
CPT/HCPCS: 36415; 51701; 71020; 80048; 80053; 81001; 82553; 82803; 82962; 83605; 83735; 83880; 83930; 83935; 85025; 85379; 85610; 87040; 87077; 87086; 87088; 87186; 93005; 93010; 94640; 94799; 99285; J0456; J0696; J1885; J2405; J2920; J3490; J7030; J7060

== ENCOUNTER 2016-12-29 12:42 | Emergency (ER) | payer MEDICARE, OTHER ==
[2016-12-29 13:55] LABS: ABSOLUTE LYMPHOCYTES (AUTO) 0.7 10^3/uL (0.5-4.7); ABSOLUTE MONOCYTES (AUTO) 0.2 10^3/uL (0.1-1.4); ABSOLUTE NEUT (AUTO) 8.6 10^3/uL (1.7-8.2); BASOPHILS % (AUTO) 0.3 % (0-2); EOSINOPHILS % (AUTO) 0.2 % (0-6); HEMATOCRIT 36.5 % (36.0-47.0); HEMOGLOBIN 12.4 g/dL (12.0-15.5); HGB HCT DIFFERENCE 0.7; MEAN CORPUSCULAR HEMOGLOBIN 28.6 pg (27.0-33.4); MEAN CORPUSCULAR HGB CONC 33.9 g/dL (32.0-36.0); MEAN CORPUSCULAR VOLUME 84 fl (80-97); MONOCYTES % (AUTO) 1.7 % (3-13); RED BLOOD COUNT 4.32 10^6/uL (3.72-5.28); RED CELL DISTRIBUTION WIDTH 16.4 % (11.5-14.0); SEGMENTED NEUTROPHILS % (AUTO) 90.8 % (42-78); WHITE BLOOD COUNT 9.4 10^3/uL (4.0-10.5)
[2016-12-29 14:00] LABS: APPEARANCE,URINE SLIGHTLY-CLOUDY; BILIRUBIN,URINE NEGATIVE (NEGATIVE); GLUCOSE, URINE NEGATIVE (NEGATIVE); KETONES,URINE NEGATIVE (NEGATIVE); LEUKOCYTE ESTERASE,URINE NEGATIVE (NEGATIVE); NITRITE,URINE NEGATIVE (NEGATIVE); PROTEIN,URINE NEGATIVE (NEGATIVE); URINE SPECIFIC GRAVITY 1.003; UROBILINOGEN,URINE NEGATIVE mg/dL (<2.0)
[2016-12-29 14:17] LABS: ALANINE AMINOTRANSFERASE 34 U/L (9-52); ALBUMIN 4.2 g/dL (3.5-5.0); ALKALINE PHOSPHATASE 84 U/L (38-126); ANION GAP 9 (5-19); ASPARTATE AMINO TRANSFERASE 16 U/L (14-36); BILIRUBIN,DIRECT 0.3 mg/dL (0.0-0.4); BILIRUBIN,TOTAL 0.4 mg/dL (0.2-1.3); BLOOD UREA NITROGEN 12 mg/dL (7-20); CALCIUM 10.1 mg/dL (8.4-10.2); CARBON DIOXIDE 29 mmol/L (22-30); CHLORIDE 93 mmol/L (98-107); GLUCOSE 141 mg/dL (75-110); POTASSIUM 4.3 mmol/L (3.6-5.0); SODIUM 131.3 mmol/L (137-145); TOTAL PROTEIN 6.9 g/dL (6.3-8.2)
[2016-12-29] MEDS ORDERED: NORMAL SALINE 1000 ML 1,000 ML IV ONE (14:30)
--- NOTE | 2016-12-29 15:20 | ER Document Report ---
ED General - General Chief Complaint: Headache Stated Complaint: BACK PAIN, HEADACHE, SORE THROAT Time Seen by Provider: 12/29/16 13:04 Information source: Patient TRAVEL OUTSIDE OF THE [place] IN LAST 30 DAYS: No - HPI Notes: 71-year-old female recently admitted for urosepsis related to pyelonephritis presents with pain she feels could possibly be the return of her pyelonephritis. She describes lumbar pain that is midline similar to before. She denies it being more unilateral initially but now states more right-sided. She also has some more inner scapular discomfort as well but no anterior chest pain or abdominal discomfort. She feels some of this is related to her COPD. She has used her normal pain medications and prednisone without much relief until now when it is improving. She has some mild difficulty breathing but states it is really not much worse than normal. Denies any fever cough or cold symptoms. She also has a variety of other discomfort including headaches and recent sore throat and ear pain leg discomfort. She is scheduled for a venous Doppler to evaluate for DVT of her lower extremities. She is on a daily baby aspirin as well. Her biggest worry is that her urosepsis might be returning as the back pain seems to have worsened slowly over the last 4 days similar to how it started last time. - Related Data Allergies/Adverse Reactions: Penicillins Allergy (Severe, Verified 12/29/16 12:47) rash at site of contact latex Allergy (Verified 12/29/16 12:47) peanut Allergy (Verified 12/29/16 12:47) Trouble Breathing/Wheezing Metals Allergy (Intermediate, Uncoded 12/29/16 12:47) reports rash at site of contact Past Medical History - Social History Smoking Status: Former Smoker Chew tobacco use (# tins/day): Yes Frequency of alcohol use: None Drug Abuse: None Family History: Hypertension - Past Medical History Cardiac Medical History: Reports: Hx Hypertension, Hx Heart Murmur Denies: Hx Atrial Fibrillation, Hx Congestive Heart Failure, Hx Coronary Artery Disease, Hx Heart Attack, Hx Hypercholesterolemia, Hx Peripheral Vascular Disease, Hx Pulmonary Embolism Pulmonary Medical History: Reports: Hx Asthma - uses inhalers, Hx Bronchitis, Hx COPD, Hx Pneumonia, Hx Sleep Apnea - does not use CPAP Denies: Hx Respiratory Failure, Hx Tuberculosis Neurological Medical History: Reports: Hx Migraine. Denies: Hx Cerebrovascular Accident, Hx Seizures Endocrine Medical History: Renal/ Medical History: Denies: Hx End Stage Renal Disease, Hx Kidney Stones, Hx Ovarian Cysts, Hx Peritoneal Dialysis, Hx Pelvic Inflammatory Disease Malignancy Medical History: Denies: Hx Breast Cancer, Hx Cervical Cancer, Hx Leukemia, Hx Lung Cancer, Hx Ovarian Cancer GI Medical History: Reports: Hx Diverticulitis, Hx Gastroesophageal Reflux Disease - 30 years-takes med, Hx Hiatal Hernia - "sliding", Hx Irritable Bowel. Denies: Hx Crohn's Disease, Hx Liver Failure, Hx Ulcer Musculoskeltal Medical History: Reports Hx Arthritis, Reports Hx Fibromyalgia - 20 yrs, Denies Hx Multiple Sclerosis, Denies Hx Muscular Dystrophy Psychiatric Medical History: Reports: Hx Anxiety, Hx Attention Deficit Hyperactivity Disorder, Hx Depression - Anxiety, Hx Post Traumatic Stress Disorder Denies: Hx Bipolar Disorder, Hx Dementia, Hx Schizophrenia Traumatic Medical History: Reports: Hx Fractures - neck-40 yrs ago Infectious Medical History: Denies: Hx HIV Past Surgical History: Reports: Hx Hysterectomy, Hx Orthopedic Surgery - Right knee, Hx Tonsillectomy - as an adult. Denies: Hx Adenoidectomy, Hx Appendectomy - ? removed during hysterectomy ?, Hx Bowel Surgery, Hx Section, Hx Cholecystectomy, Hx Colostomy, Hx Coronary Artery Bypass Graft, Hx Gastric Bypass Surgery, Hx Herniorrhaphy, Hx Mastectomy, Hx Pacemaker, Hx Tubal Ligation - Immunizations Hx Diphtheria, Pertussis, Tetanus Vaccination: Yes Hx Pneumococcal Vaccination: 01/09/10 Review of Systems - Review of Systems -: Yes All other systems reviewed and negative Physical Exam - Vital signs Vitals: Temp Pulse Resp BP Pulse Ox 98.0 F 69 18 161/95 H 95 12/29/16 12:48 12/29/16 12:48 12/29/16 12:48 12/29/16 12:48 12/29/16 12:48 Interpretation: Normal, Hypertensive - Notes Notes: GENERAL: VS as per nursing doc. Well-appearing, well-nourished and in no acute distress. HEAD: Atraumatic, normocephalic. EYES: Pupils equal round and reactive to light, extraocular movements intact, sclera anicteric, no conjunctival injection or discharge. ENT: Nares patent, oropharynx clear without exudates, moist mucous membranes. NECK: Normal range of motion, supple without lymphadenopathy. LUNGS: Breath sounds clear to auscultation bilaterally and equal though slightly decreased bilaterally. No wheezes rales or rhonchi. HEART: Regular rate and rhythm without murmurs. ABDOMEN: Soft, non-tender, normoactive bowel sounds. No guarding, no rebound. No masses appreciated. No [place] sign. BACK: Moderate right CVA tenderness, there is some mild lumbar tenderness extending to the very low thoracic region as well. EXTREMITIES: Normal range of motion, no calf tenderness, very tender but just trace edema. NEUROLOGICAL: Cranial nerves grossly intact. Normal speech. Normal sensory and motor exams. No gross cerebellar abnormalities. PSYCH: Normal mood, normal affect. SKIN: Warm, dry, normal turgor, no lesions noted. Course - Re-evaluation Re-evalutation: 12/29/16 17:26 Discussed all findings with the patient. Urine does not show any clear evidence of infection but I have asked her to watch this closely as well as watch for fever. Based on what she is said before her symptoms started similarly to this. She is feeling fine at this point now much better and wants to leave. Her CT did not show any renal stones which I did as I do not see prior except for her head CT. She only has mild hyponatremia with slight hyperglycemia. She understands RT ER warning signs and agrees to return. She has a Doppler scheduled for Sunday already. She is well will be following up with her primary care physician. - Vital Signs Vital signs: Temp Pulse Resp BP Pulse Ox 98.0 F 69 14 161/95 H 95 12/29/16 12:48 12/29/16 12:48 12/29/16 13:04 12/29/16 12:48 12/29/16 12:48 - Laboratory Result Diagrams: 12/29/16 13:40 12/29/16 13:40 Laboratory results interpreted by me: 12/29/16 12/29/16 12/29/16 13:28 13:40 13:40 RDW 16.4 H Seg Neutrophils % 90.8 H Lymphocytes % 7.0 L Monocytes % 1.7 L Absolute Neutrophils 8.6 H Sodium 131.3 L Chloride 93 L Glucose 141 H Urine Ascorbic Acid 20 H Discharge - Discharge Clinical Impression: Back pain Condition: Good Disposition: HOME, SELF-CARE Forms: Elevated Blood Pressure Referrals: ALPHONSE GABRIEL PA-C [Primary Care Provider] - Follow up in 3-5 days
[2016-12-29] MEDS ORDERED: ACETAMINOPHEN 325 MG TABLET PO ONE (15:32)
--- NOTE | 2016-12-29 16:23 | RADIOLOGY REPORT (SQ) ---
EXAM DESCRIPTION: CHEST PA/LAT COMPLETED DATE/TIME: 12/29/2016 4:04 pm REASON FOR STUDY: Thoracic pain COMPARISON: 11/23/2016 EXAM PARAMETERS: NUMBER OF VIEWS: two views TECHNIQUE: Digital Frontal and Lateral radiographic views of the chest acquired. RADIATION DOSE: NA LIMITATIONS: none FINDINGS: LUNGS AND PLEURA: No opacities, masses or pneumothorax. No pleural effusion. MEDIASTINUM AND HILAR STRUCTURES: No masses or contour abnormalities. HEART AND VASCULAR STRUCTURES: Heart normal size. No evidence for failure. BONES: No acute findings. HARDWARE: Orthopedic hardware is again identified in the lower cervical spine OTHER: Tubular structure is identified overlying the left hemithorax presumably external to the patie nt IMPRESSION: No significant interval change. No acute findings. Other findings as noted above TECHNICAL DOCUMENTATION: JOB ID: [id number] [employer]- All Rights Reserved
--- NOTE | 2016-12-29 16:26 | RADIOLOGY REPORT (SQ) ---
EXAM DESCRIPTION: CT LTD RENAL STONE PROTOCOL ON COMPLETED DATE/TIME: 12/29/2016 3:56 pm REASON FOR STUDY: Right Flank pain, recent pyelo COMPARISON: None. TECHNIQUE: CT scan of the abdomen and pelvis performed without intravenous or oral contrast. Images reviewed with lung, soft tissue, and bone windows. Reconstructed coronal and sagittal MPR images revi ewed. All images stored on PACS. All CT scanners at this facility use dose modulation, iterative reconstruction, and/or weight based d osing when appropriate to reduce radiation dose to as low as reasonably achievable (ALARA). [facility]: Dose Right [facility]: CareDose [facility]: Dose Right [facility]: Teradose 4D [facility]: Smart Shelfie RADIATION DOSE: Up-to-date CT equipment and radiation dose reduction techniques were employed. CTDIv ol: 11.6 mGy. DLP: 555 mGy-cm.mGy. LIMITATIONS: None. FINDINGS: LOWER CHEST: No significant findings. No nodules or infiltrates. NON-CONTRASTED LIVER, SPLEEN, ADRENALS: Evaluation limited by lack of IV contrast. No identified sign ificant masses. Small hepatic cyst is identified. PANCREAS: No masses. No peripancreatic inflammatory changes. GALLBLADDER: No identified stones by CT criteria. No inflammatory changes to suggest cholecystitis. RIGHT KIDNEY AND URETER: No suspicious masses. Assessment limited by lack of IV contrast. No signif icant calcifications. No hydronephrosis or hydroureter. LEFT KIDNEY AND URETER: No suspicious masses. Assessment limited by lack of IV contrast. No signifi cant calcifications. No hydronephrosis or hydroureter. AORTA AND RETROPERITONEUM: No aneurysm. No retroperitoneal masses or adenopathy. BOWEL AND PERITONEAL CAVITY: No obvious masses or inflammatory changes. No free fluid. Moderate amou nt of fecal material is identified throughout the colon. Multiple sigmoid diverticula are identified without CT evidence for diverticulitis. APPENDIX: Normal. PELVIS, BLADDER, AND ABDOMINAL WALL:Not identified BONES: No significant findings. OTHER: Multiple calcified phleboliths are identified. IMPRESSION: NO SIGNIFICANT OR ACUTE PROCESS IN THE ABDOMEN OR PELVIS. TECHNICAL DOCUMENTATION: JOB ID: [id number] Quality ID # [id number]: Final reports with documentation of one or more dose reduction techniques (e.g., Au tomated exposure control, adjustment of the mA and/or kV according to patient size, use of iterative reconstruction technique) 2010 [employer]- All Rights Reserved
[2016-12-29 17:46] VITALS: BP 141/81
== END 2016-12-29 17:46 | disposition home or self-care (01) ==
LOC: ER 12:42
DX: M54.9 Dorsalgia, unspecified (principal); R51 Headache; J02.9 Acute pharyngitis, unspecified; I10 Essential (primary) hypertension; J44.9 Chronic obstructive pulmonary disease, unspecified; Z88.0 Allergy status to penicillin; Z91.040 Latex allergy status; Z91.010 Allergy to peanuts; Z87.891 Personal history of nicotine dependence; Z90.710 Acquired absence of both cervix and uterus
CPT/HCPCS: 99284; 96360; 36415; 83690; 85025; 80053; 81001; 71020; 76380; A9270; J7030

== ENCOUNTER → 2017-08-03 | Outpatient (CLI) | payer MEDICARE, OTHER ==
[2017-08-03 13:51] LABS: ABSOLUTE LYMPHOCYTES (AUTO) 1.5 10^3/uL (0.5-4.7); ABSOLUTE MONOCYTES (AUTO) 0.5 10^3/uL (0.1-1.4); ABSOLUTE NEUT (AUTO) 4.1 10^3/uL (1.7-8.2); BASOPHILS % (AUTO) 0.6 % (0-2); EOSINOPHILS % (AUTO) 0.8 % (0-6); HEMATOCRIT 37.1 % (36.0-47.0); HEMOGLOBIN 12.7 g/dL (12.0-15.5); LYMPHOCYTES % (AUTO) 23.8 % (13-45); MEAN CORPUSCULAR HEMOGLOBIN 27.8 pg (27.0-33.4); MEAN CORPUSCULAR HGB CONC 34.3 g/dL (32.0-36.0); MEAN CORPUSCULAR VOLUME 81 fl (80-97); MONOCYTES % (AUTO) 8.3 % (3-13); PLATELET COUNT 183 10^3/uL (150-450); RED BLOOD COUNT 4.58 10^6/uL (3.72-5.28); RED CELL DISTRIBUTION WIDTH 15.4 % (11.5-14.0); SEGMENTED NEUTROPHILS % (AUTO) 66.5 % (42-78); TOTAL CELLS COUNTED % (AUTO) 100 %; WHITE BLOOD COUNT 6.1 10^3/uL (4.0-10.5)
[2017-08-03 14:27] LABS: ANION GAP 9 (5-19); BLOOD UREA NITROGEN 6 mg/dL (7-20); CALCIUM 10.2 mg/dL (8.4-10.2); CARBON DIOXIDE 30 mmol/L (22-30); CHLORIDE 95 mmol/L (98-107); GLUCOSE 90 mg/dL (75-110); POTASSIUM 4.4 mmol/L (3.6-5.0); SODIUM 133.7 mmol/L (137-145)
[2017-08-03 14:34] LABS: ERYTHROCYTE SEDIMENTATION RATE 6 mm/hr (0-30)
[2017-08-03 14:35] LABS: C-REACTIVE PROTEIN < 5.0 mg/L (<10.0)
== END ==
LOC: OD 12:08
PROVIDERS: ATTEND Orthopaedic Surgery
DX: M25.461 Effusion, right knee (principal)
CPT/HCPCS: 36415; 80048; 85025; 85652; 86140

== ENCOUNTER → 2017-08-15 | Outpatient (CLI) | payer MEDICARE, OTHER ==
--- NOTE | 2017-08-15 15:14 | RADIOLOGY REPORT (SQ) ---
EXAM DESCRIPTION: NM HIDA SCAN WITH CCK COMPLETED DATE/TIME: 08/15/2017 2:58 pm REASON FOR STUDY: NAUSEA R10.84 GENERALIZED ABDOMINAL PAIN COMPARISON: 07/01/2015. RADIONUCLIDE AND DOSE: DOSAGE RADIONUCLIDE: 5.17 millicuries Tc99m Mebrofenin. DOSAGE CCK: 1.6 micrograms. DOSAGE MORPHINE: Not required. The route of agent administration: Intravenous TECHNIQUE: Serial imaging right upper quadrant up to 60 minutes following injection of radionuclide. CCK injected after gallbladder visualized. LIMITATIONS: None. FINDINGS: LIVER: Normal visualization without areas of photopenia. INTRAHEPATIC BILE DUCTS: Normal size and no delay in visualization. COMMON BILE DUCT: Normal without dilatation. GALLBLADDER: Normal visualization. Calculated ejection fraction of 78%. Normal range is greater th an 35%. PHYSICAL RESPONSE: Patients presenting complaint was reproduced. OTHER: No other significant finding. IMPRESSION: NORMAL STUDY WITHOUT CYSTIC OR COMMON DUCT OBSTRUCTION. NORMAL GALLBLADDER EJECTION FRA CTION. NO EVIDENCE FOR BILIARY DYSKINESIS. TECHNICAL DOCUMENTATION: JOB ID: [id number] [employer]- All Rights Reserved Reading location - IP/workstation name: [email or web address]
== END ==
LOC: RAD 13:04
PROVIDERS: ATTEND Internal Medicine Gastroenterology
DX: R10.84 Generalized abdominal pain (principal); R11.0 Nausea
CPT/HCPCS: 78227; J2805; A9537; Q9969

== ENCOUNTER 2017-09-11 11:00 | Observation (INO) | payer MEDICARE, OTHER ==
--- NOTE | 2017-09-11 11:15 | ER Document Report ---
ED Medical Screen (RME) - General Chief Complaint: Breathing Difficulty Stated Complaint: BREATHING CONCERN Time Seen by Provider: 09/11/17 11:07 Notes: 71-year-old female patient two-week history of shortness of breath. At this point she gets short of breath walking. She did have some sneezing also thought it may be allergies. Seen at urgent care this past Sunday and started on Levaquin. She also uses albuterol and budesonide and nebulizer. She is not taking prednisone. She states prednisone causes for her lymphedema to get worse. She is complaining of pain in her chest, ribs, and upper back. She states she has a history of COPD, emphysema, and asthma. I have greeted and performed a rapid initial assessment of this patient. A comprehensive ED assessment and evaluation of the patient, analysis of test results and completion of the medical decision making process will be conducted by additional ED providers. TRAVEL OUTSIDE OF THE [place] IN LAST 30 DAYS: No - Related Data Allergies/Adverse Reactions: Penicillins Allergy (Severe, Verified 09/11/17 11:01) rash at site of contact latex Allergy (Verified 09/11/17 11:01) peanut Allergy (Verified 09/11/17 11:01) Trouble Breathing/Wheezing Metals Allergy (Intermediate, Uncoded 09/11/17 11:01) reports rash at site of contact Past Medical History - Past Medical History Cardiac Medical History: Reports: Hx Hypertension, Hx Heart Murmur Denies: Hx Atrial Fibrillation, Hx Congestive Heart Failure, Hx Coronary Artery Disease, Hx Heart Attack, Hx Hypercholesterolemia, Hx Peripheral Vascular Disease, Hx Pulmonary Embolism Pulmonary Medical History: Reports: Hx Asthma - uses inhalers, Hx Bronchitis, Hx COPD, Hx Pneumonia, Hx Sleep Apnea - does not use CPAP Denies: Hx Respiratory Failure, Hx Tuberculosis Neurological Medical History: Reports: Hx Migraine. Denies: Hx Cerebrovascular Accident, Hx Seizures Endocrine Medical History: Renal/ Medical History: Denies: Hx End Stage Renal Disease, Hx Kidney Stones, Hx Ovarian Cysts, Hx Peritoneal Dialysis, Hx Pelvic Inflammatory Disease Malignancy Medical History: Denies: Hx Breast Cancer, Hx Cervical Cancer, Hx Leukemia, Hx Lung Cancer, Hx Ovarian Cancer GI Medical History: Reports: Hx Diverticulitis, Hx Gastroesophageal Reflux Disease - 30 years-takes med, Hx Hiatal Hernia - "sliding", Hx Irritable Bowel. Denies: Hx Crohn's Disease, Hx Liver Failure, Hx Pancreatitis, Hx Ulcer Musculoskeltal Medical History: Reports Hx Arthritis, Reports Hx Fibromyalgia - 20 yrs, Denies Hx Multiple Sclerosis, Denies Hx Muscular Dystrophy Psychiatric Medical History: Reports: Hx Anxiety, Hx Attention Deficit Hyperactivity Disorder, Hx Depression - Anxiety, Hx Post Traumatic Stress Disorder Denies: Hx Bipolar Disorder, Hx Dementia, Hx Schizophrenia Traumatic Medical History: Reports: Hx Fractures - neck-40 yrs ago Infectious Medical History: Denies: Hx HIV Past Surgical History: Reports: Hx Hysterectomy, Hx Orthopedic Surgery - Right knee, Hx Tonsillectomy - as an adult. Denies: Hx Adenoidectomy, Hx Appendectomy - ? removed during hysterectomy ?, Hx Bowel Surgery, Hx Section, Hx Cholecystectomy, Hx Colostomy, Hx Coronary Artery Bypass Graft, Hx Gastric Bypass Surgery, Hx Herniorrhaphy, Hx Mastectomy, Hx Pacemaker, Hx Tubal Ligation - Immunizations Hx Diphtheria, Pertussis, Tetanus Vaccination: Yes Physical Exam - Vital signs Vitals: Temp Pulse Resp BP Pulse Ox 98.8 F 79 18 152/99 H 99 09/11/17 11:03 09/11/17 11:03 09/11/17 11:03 09/11/17 11:03 09/11/17 11:03 Course - Vital Signs Vital signs: Temp Pulse Resp BP Pulse Ox 98.8 F 79 18 152/99 H 99 09/11/17 11:03 09/11/17 11:03 09/11/17 11:03 09/11/17 11:03 09/11/17 11:03
[2017-09-11 11:51] LABS: ABSOLUTE EOSINOPHILS # (AUTO) 0.1 10^3/uL (0.0-0.6); ABSOLUTE LYMPHOCYTES (AUTO) 0.9 10^3/uL (0.5-4.7); ABSOLUTE MONOCYTES (AUTO) 0.5 10^3/uL (0.1-1.4); EOSINOPHILS % (AUTO) 1.2 % (0-6); HEMATOCRIT 33.9 % (36.0-47.0); HEMOGLOBIN 11.6 g/dL (12.0-15.5); LYMPHOCYTES % (AUTO) 20.5 % (13-45); MEAN CORPUSCULAR HGB CONC 34.1 g/dL (32.0-36.0); MEAN CORPUSCULAR VOLUME 82 fl (80-97); PLATELET COUNT 150 10^3/uL (150-450); RED BLOOD COUNT 4.13 10^6/uL (3.72-5.28); RED CELL DISTRIBUTION WIDTH 14.6 % (11.5-14.0); SEGMENTED NEUTROPHILS % (AUTO) 65.3 % (42-78); TOTAL CELLS COUNTED % (AUTO) 100 %; WHITE BLOOD COUNT 4.5 10^3/uL (4.0-10.5)
--- NOTE | 2017-09-11 12:02 | RADIOLOGY REPORT (SQ) ---
EXAM DESCRIPTION: CHEST 2 VIEWS COMPLETED DATE/TIME: 09/11/2017 11:44 am REASON FOR STUDY: COPD exacerbation COMPARISON: 12/29/2016 EXAM PARAMETERS: NUMBER OF VIEWS: two views TECHNIQUE: Digital Frontal and Lateral radiographic views of the chest acquired. RADIATION DOSE: NA LIMITATIONS: none FINDINGS: LUNGS AND PLEURA: No opacities, masses or pneumothorax. No pleural effusion. MEDIASTINUM AND HILAR STRUCTURES: No masses or contour abnormalities. HEART AND VASCULAR STRUCTURES: Heart normal size. No evidence for failure. BONES: No acute findings. HARDWARE: None in the chest. OTHER: No other significant finding. IMPRESSION: NO ACUTE RADIOGRAPHIC FINDING IN THE CHEST. TECHNICAL DOCUMENTATION: JOB ID: [id number] [email or web address]- All Rights Reserved Reading location - IP/workstation name: [email or web address]
[2017-09-11 12:13] LABS: ALANINE AMINOTRANSFERASE 26 U/L (9-52); ALBUMIN 3.8 g/dL (3.5-5.0); ALKALINE PHOSPHATASE 57 U/L (38-126); ASPARTATE AMINO TRANSFERASE 14 U/L (14-36); BILIRUBIN,DIRECT 0.2 mg/dL (0.0-0.4); BILIRUBIN,TOTAL 0.5 mg/dL (0.2-1.3); BLOOD UREA NITROGEN 5 mg/dL (7-20); CALCIUM 9.3 mg/dL (8.4-10.2); CARBON DIOXIDE 31 mmol/L (22-30); CREATINE KINASE 55 U/L (30-135); GLUCOSE 95 mg/dL (75-110); POTASSIUM 3.8 mmol/L (3.6-5.0); TOTAL PROTEIN 6.2 g/dL (6.3-8.2)
[2017-09-11 12:24] LABS: CREATINE KINASE MB 1.78 ng/mL (<4.55); TROPONIN I < 0.012 ng/mL
[2017-09-11] MEDS ORDERED: DEXAMETHASONE SOD PHOS INJ 10 MG/1 ML VIAL IM ONE (12:24)
[2017-09-11] MEDS ORDERED: IPRATROPIUM/ALBUTEROL 0.5-2.5 MG/3 ML AMPUL NEB ONE (12:24)
--- NOTE | 2017-09-11 12:32 | ER Document Report ---
ED General - General Chief Complaint: Breathing Difficulty Stated Complaint: BREATHING CONCERN Time Seen by Provider: 09/11/17 11:07 TRAVEL OUTSIDE OF THE [place] IN LAST 30 DAYS: No - HPI Notes: Patient is a 71-year-old female with a history of COPD, emphysema, asthma, fibromyalgia, chronic pain who presents to the ED complaining of feeling short of breath intermittently over the last 2 weeks primarily when she is ambulating. Patient states that she also has back pain bilaterally to her thoracic spine that is worsened with movement and coughing. Patient states that she has been using her nebulizer treatments with minimal relief. She was also evaluated by an urgent care this past Sunday and was placed on Levaquin 200 mg tabs once daily. Patient states that her symptoms remain unchanged from that visit. I did review with patient if she is having any actual chest pain, and patient declined despite what was said at pit. Patient states that she has had associated wheezing as well with a dry nonproductive cough. Patient did have some nasal congestion and discharge early in the illness, but that has since resolved. Patient admits to being a former smoker. Denies IV drug use. Denies any headache, fever, neck pain, URI, sore throat, chest pain, palpitations, syncope, abdominal pain, nausea/vomiting/diarrhea, urinary retention, dysuria, hematuria, loss of control of bowel or bladder, numbness/ tingling, saddle anesthesia, muscle paralysis/weakness, or rash. Patient denies any significant cardiac medical history and states that she had a stress test within the last month that was negative. 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 - Related Data Allergies/Adverse Reactions: Penicillins Allergy (Severe, Verified 09/11/17 11:01) rash at site of contact latex Allergy (Verified 09/11/17 11:01) peanut Allergy (Verified 09/11/17 11:01) Trouble Breathing/Wheezing Metals Allergy (Intermediate, Uncoded 09/11/17 11:01) reports rash at site of contact Past Medical History - Social History Smoking Status: Former Smoker Family History: Hypertension Patient has suicidal ideation: No Patient has homicidal ideation: No - Past Medical History Cardiac Medical History: Reports: Hx Hypertension, Hx Heart Murmur Denies: Hx Atrial Fibrillation, Hx Congestive Heart Failure, Hx Coronary Artery Disease, Hx Heart Attack, Hx Hypercholesterolemia, Hx Peripheral Vascular Disease, Hx Pulmonary Embolism Pulmonary Medical History: Reports: Hx Asthma - uses inhalers, Hx Bronchitis, Hx COPD, Hx Pneumonia, Hx Sleep Apnea - does not use CPAP Denies: Hx Respiratory Failure, Hx Tuberculosis Neurological Medical History: Reports: Hx Migraine. Denies: Hx Cerebrovascular Accident, Hx Seizures Endocrine Medical History: Renal/ Medical History: Denies: Hx End Stage Renal Disease, Hx Kidney Stones, Hx Ovarian Cysts, Hx Peritoneal Dialysis, Hx Pelvic Inflammatory Disease Malignancy Medical History: Denies: Hx Breast Cancer, Hx Cervical Cancer, Hx Leukemia, Hx Lung Cancer, Hx Ovarian Cancer GI Medical History: Reports: Hx Diverticulitis, Hx Gastroesophageal Reflux Disease - 30 years-takes med, Hx Hiatal Hernia - "sliding", Hx Irritable Bowel. Denies: Hx Crohn's Disease, Hx Liver Failure, Hx Pancreatitis, Hx Ulcer Musculoskeltal Medical History: Reports Hx Arthritis, Reports Hx Fibromyalgia - 20 yrs, Denies Hx Multiple Sclerosis, Denies Hx Muscular Dystrophy Psychiatric Medical History: Reports: Hx Anxiety, Hx Attention Deficit Hyperactivity Disorder, Hx Depression - Anxiety, Hx Post Traumatic Stress Disorder Denies: Hx Bipolar Disorder, Hx Dementia, Hx Schizophrenia Traumatic Medical History: Reports: Hx Fractures - neck-40 yrs ago Infectious Medical History: Denies: Hx HIV Past Surgical History: Reports: Hx Hysterectomy, Hx Orthopedic Surgery - Right knee, Hx Tonsillectomy - as an adult. Denies: Hx Adenoidectomy, Hx Appendectomy - ? removed during hysterectomy ?, Hx Bowel Surgery, Hx Section, Hx Cholecystectomy, Hx Colostomy, Hx Coronary Artery Bypass Graft, Hx Gastric Bypass Surgery, Hx Herniorrhaphy, Hx Mastectomy, Hx Pacemaker, Hx Tubal Ligation - Immunizations Hx Diphtheria, Pertussis, Tetanus Vaccination: Yes Hx Pneumococcal Vaccination: 01/09/10 Review of Systems - Review of Systems -: Yes All other systems reviewed and negative Physical Exam - Vital signs Vitals: Temp Pulse Resp BP Pulse Ox 98.8 F 79 18 152/99 H 99 09/11/17 11:03 09/11/17 11:03 09/11/17 11:03 09/11/17 11:03 09/11/17 11:03 - Notes Notes: PHYSICAL EXAMINATION: GENERAL: Well-appearing, well-nourished and in no acute distress. A&Ox4. Answers questions appropriately. HEAD: Atraumatic, normocephalic. EYES: Pupils equal round and reactive to light, extraocular movements intact, sclera anicteric, conjunctiva are normal. ENT: Nares patent and without discharge. oropharynx clear without exudates. No tonsilar hypertrophy or erythema. Moist mucous membranes. NECK: Normal range of motion, supple without lymphadenopathy LUNGS: prolonged expiration, scant wheeze, dec breath sounds. No crackles. I hear more forced wheezing from her throat than in her lungs. HEART: Regular rate and rhythm without murmurs, rubs, gallops. ABDOMEN: Soft, nontender, nondistended abdomen. No guarding, no rebound. No masses appreciated. Normal bowel sounds present. No CVA tenderness bilaterally. Musculoskeletal: FROM to passive/active. Strength 5+/5. Christopher neg. no calf erythema/tenderness/swelling. Back: FROM. Strength 5+/5. SLR neg. No foot drop. + reproducible tenderness to the T-paraspinal mm b/l which correlates with pain described. Extremities: No cyanosis, clubbing, or edema b/l. Peripheral pulses 2+. Capillary refill less than 3 seconds. NEUROLOGICAL: Cranial nerves grossly intact. Normal speech, normal gait. Normal sensory, motor exams PSYCH: Normal mood, normal affect. SKIN: Warm, Dry, normal turgor, no rashes or lesions noted. Course - Re-evaluation Re-evalutation: 09/11/17 12:42 Vitals acceptable. Labs/imaging pending We will tx for COPD exacerbation currently. 09/11/17 14:38 Patient is an afebrile, well-hydrated, 71-year-old female who presents to the ED with a COPD exacerbation and reproducible back pain. Vitals are acceptable at rest. PE is otherwise unremarkable. CBC, CMP, cardiac enzymes 2/EKG, BNP were unremarkable for any acute pathology. Chest x-ray was unremarkable for any acute pathology. Patient had some improvement of her symptoms status post magnesium 2, DuoNeb, and Decadron. Patient was also given Toradol. Patient is tolerating p.o. without any difficulties. Patient was ambulated on room air and her pulse ox dropped to a low of 85%. Pt otherwise has no significant tachycardia or tachypnea and at rest her O2 remains >94% on RA. Patient has a heart score of 3 with a report of a negative stress test within the last month. 09/11/17 15:30 I spoke with GOYO Johnson who accepted patient for COPD exacerbation. Pt is in agreement with admission/plan. Vitals currently acceptable. No new concerns or complaints. - Vital Signs Vital signs: Temp Pulse Resp BP Pulse Ox 98.8 F 79 16 114/78 95 09/11/17 11:03 09/11/17 11:03 09/11/17 13:00 09/11/17 12:03 09/11/17 13:00 - Laboratory Result Diagrams: 09/11/17 11:30 09/11/17 11:30 Laboratory results interpreted by me: 09/11/17 09/11/17 11:30 11:30 Hgb 11.6 L Hct 33.9 L RDW 14.6 H Sodium 126.9 L Chloride 91 L Carbon Dioxide 31 H BUN 5 L Creatinine 0.51 L Total Protein 6.2 L Discharge - Discharge Clinical Impression: COPD exacerbation Condition: Stable Disposition: ADMITTED OBSERVATION Admitting Provider: Hospitalist - GOYO Johnson
[2017-09-11] MEDS ORDERED: KETOROLAC TROMETHAMINE INJ/PF 30 MG/1 ML SDV IV ONE (12:44)
[2017-09-11] MEDS ORDERED: DEXAMETHASONE SOD PHOS INJ 10 MG/1 ML VIAL IV ONE (12:44)
[2017-09-11 12:46] LABS: ANION GAP 5 (5-19); CHLORIDE 91 mmol/L (98-107); SODIUM 126.9 mmol/L (137-145)
[2017-09-11] MEDS: MAGNESIUM SULFATE/D5W 1 GM/100 ML RTUPB IV PRN ×2 (13:02→14:00)
[2017-09-11] MEDS ORDERED: FENTANYL CITRATE INJ/PF 100 MCG/2 ML AMPUL IV PRN (17:45)
[2017-09-11] MEDS ORDERED: LEVALBUTEROL HCL NEB 1.25 MG/3 ML AMPUL NEB PRN (17:49)
[2017-09-11] MEDS ORDERED: BUDESONIDE NEB 0.5 MG/2 ML AMPUL NEB PRN (18:04)
[2017-09-11] MEDS ORDERED: TRAZODONE HCL 50 MG TABLET PO ONE ×2 (19:00→23:00)
[2017-09-11] MEDS ORDERED: TIOTROPIUM BROMIDE DPI 5 CAP/KIT (18 MCG/CAP) IH ONE (19:00)
[2017-09-11] MEDS ORDERED: METHYLPREDNISOLONE INJ 40 MG/1 ML SDV IV SCH (22:00)
--- NOTE | 2017-09-11 22:44 | EKG REPORT ---
SEVERITY:- BORDERLINE ECG - SINUS RHYTHM CONSIDER RIGHT VENTRICULAR HYPERTROPHY : Confirmed by: Tamera Velazquez 11-Sep-2017 22:44:21
[2017-09-11] MEDS: TIZANIDINE HCL 4 MG TABLET PO SCH (23:53)
[2017-09-11] MEDS: METHYLPREDNISOLONE INJ 125 MG/2 ML SDV IV SCH (23:54)
[2017-09-11] MEDS: BUDESONIDE/FORMOTEROL 160-4.5 MCG 60 PUFF/6 GM MDI IH SCH (23:54)
[2017-09-11] MEDS: HEPARIN SOD (PORCINE) 5,000 UNIT/ML 1 ML SYRINGE SUBCUT SCH (23:55)
[2017-09-12] MEDS: CLONAZEPAM 1 MG TABLET PO PRN (00:56)
[2017-09-12] MEDS: METHYLPREDNISOLONE INJ 125 MG/2 ML SDV IV SCH ×3 (05:45→21:30)
[2017-09-12] MEDS: LANSOPRAZOLE 30 MG TAB.RAP.DR PO SCH (05:46)
[2017-09-12] MEDS: OXYCODONE HCL IR 5 MG TABLET PO PRN ×2 (05:46→15:23)
[2017-09-12] MEDS: HEPARIN SOD (PORCINE) 5,000 UNIT/ML 1 ML SYRINGE SUBCUT SCH ×3 (05:47→21:35)
[2017-09-12 06:29] LABS: ABSOLUTE LYMPHOCYTES (AUTO) 0.4 10^3/uL (0.5-4.7); ABSOLUTE MONOCYTES (AUTO) 0.1 10^3/uL (0.1-1.4); ABSOLUTE NEUT (AUTO) 4.2 10^3/uL (1.7-8.2); BASOPHILS % (AUTO) 0.2 % (0-2); HEMATOCRIT 34.9 % (36.0-47.0); LYMPHOCYTES % (AUTO) 7.7 % (13-45); MEAN CORPUSCULAR HEMOGLOBIN 27.8 pg (27.0-33.4); MEAN CORPUSCULAR HGB CONC 34.3 g/dL (32.0-36.0); MEAN CORPUSCULAR VOLUME 81 fl (80-97); MONOCYTES % (AUTO) 1.6 % (3-13); PLATELET COUNT 161 10^3/uL (150-450); RED BLOOD COUNT 4.32 10^6/uL (3.72-5.28); RED CELL DISTRIBUTION WIDTH 14.5 % (11.5-14.0); SEGMENTED NEUTROPHILS % (AUTO) 90.5 % (42-78); TOTAL CELLS COUNTED % (AUTO) 100 %; WHITE BLOOD COUNT 4.7 10^3/uL (4.0-10.5)
[2017-09-12 06:44] LABS: ANION GAP 7 (5-19); BLOOD UREA NITROGEN 7 mg/dL (7-20); CALCIUM 10.1 mg/dL (8.4-10.2); CARBON DIOXIDE 29 mmol/L (22-30); CHLORIDE 94 mmol/L (98-107); GLUCOSE 162 mg/dL (75-110); PHOSPHORUS 3.2 mg/dL (2.5-4.5); POTASSIUM 4.3 mmol/L (3.6-5.0); SODIUM 130.2 mmol/L (137-145)
--- NOTE | 2017-09-12 08:34 | PDOC H&P ---
History of Present Illness Admission Date/PCP: 09/11/17 15:46 ALPHONSE GABRIEL PA-C Patient complains of: dyspnea on exertion; SOB History of Present Illness: KIKE LATHAM is a 71 year old female who presented to the emergency department with a 2-3 week history of shortness of breath, fatigue, cough, and dyspnea on exertion. The patient states that she recently went to an urgent care and received antibiotics for an upper respiratory infection, but her symptoms have progressively gotten worse. The patient states when she experiences shortness of breath she also has feelings of tightness in her back. This is exacerbated when she coughs, which results in her experiencing significant upper back pain along with flank pain. She endorses nasal congestion, but primarily in the morning. The patient attempted to use nebulizer treatments at home, along with Benadryl and steroids but her symptoms persisted. She states that her shortness of breath is exacerbated by smoke (cigarette smokers live in her building), mold, and extreme stress. Patient states that her tightness and shortness of breath are constant, lasting all day and all night. She occasionally experiences relief of her back pain when she takes 15 mg of oxycodone by mouth. The patient states that when her back and flank pain flareup that it is extremely severe, and she is often left in tears and it keeps her up at night. PMH includes COPD (40-50 pack-year history), rheumatoid arthritis, raynauds, fibromyalgia, lymphedema, anxiety. In the emergency department the patient was treated with Toradol, Decadron, nebulizers, and magnesium. EKG shows normal sinus rhythm, no evidence of acute infarction or ischemia. Troponin<0.012. CXR shows no evidence of infiltrates or pulmonary edema, only chronic changes secondary to her COPD. No leukocytosis , other lab work benign. The patient is resting in bed on room air, she appears comfortable. No evidence of respiratory distress. Lungs are clear to auscultation. Per nursing staff, when the patient attempts to ambulate her SPO2 drops to 88%. Past Medical History Cardiac Medical History: Reports: Hypertension Denies: Peripheral Vascular Disease Pulmonary Medical History: Reports: Asthma - uses inhalers, Bronchitis, Chronic Obstructive Pulmonary Disease (COPD), Pneumonia, Sleep Apnea - does not use CPAP Denies: Tuberculosis Neurological Medical History: Reports: Migraine Endocrine Medical History: GI Medical History: Reports: Diverticulitis, Gastroesophageal Reflux Disease - 30 years-takes med, Hiatal Hernia - "sliding" Musculoskeltal Medical History: Reports: Arthritis, Fibromyalgia - 20 yrs Psychiatric Medical History: Reports: Attention Deficit Hyperactivity Disorder, Depression, Post Traumatic Stress Disorder, Other - situational anxiety Hematology: Reports: Anemia Past Surgical History Past Surgical History: Reports: Hysterectomy, Orthopedic Surgery - Right knee, Tonsillectomy - as an adult Social History Information Source: Patient Lives with: Alone Smoking Status: Former Smoker Number of Years Smokin - 40-50. Patient states she used to smoke 2-3 packs per day Last Time Smoked: 06/11/1999 Frequency of Alcohol Use: None Hx Recreational Drug Use: No Drugs: None Hx Prescription Drug Abuse: No - Advance Directive Resuscitation Status: Full Code Family History Family History: Hypertension Parental Family History Reviewed: Yes Children Family History Reviewed: NA Sibling(s) Family History Reviewed.: Yes Medication/Allergy Home Medications: Clonazepam [Klonopin] 0.5 mg PO DAILY@0200 PRN 09/11/17 Ergocalciferol (Vitamin D2) [Drisdol 50,000 unit (1.25MG) Capsule] 50,000 unit PO MO 09/11/17 Esomeprazole Magnesium [Nexium] 40 mg PO ACBRKFST 09/11/17 L.acidoph,Paracasei, B.lactis [Probiotic] 1 cap PO DAILY 09/11/17 Multivitamin [Daily Multiple Vitamin] 1 tab PO DAILY 09/11/17 Oxycodone HCl 15 mg PO Q6HP PRN 09/11/17 Tizanidine HCl [Zanaflex 4 mg Tablet] 8 mg PO QHS 09/11/17 Trazodone HCl [Desyrel 50 mg Tablet] 500 mg PO DAILY@2100 09/11/17 Valsartan [Diovan 40 mg Tablet] 40 mg PO DAILY 09/11/17 Allergies/Adverse Reactions: Penicillins Allergy (Severe, Verified 09/11/17 11:01) rash at site of contact latex Allergy (Verified 09/11/17 11:01) peanut Allergy (Verified 09/11/17 11:01) Trouble Breathing/Wheezing Metals Allergy (Intermediate, Uncoded 09/11/17 11:01) reports rash at site of contact Review of Systems Constitutional: PRESENT: weight loss - Intentional 25 pound weight loss within the last year Nose, Mouth, and Throat: PRESENT: other - Rhinorrhea Cardiovascular: PRESENT: dyspnea on exertion Respiratory: PRESENT: cough - Nonproductive, dyspnea - Upon exertion Musculoskeletal: PRESENT: back pain - Upper back pain Psychiatric: PRESENT: anxiety Physical Exam Vital Signs: Temp Pulse Resp BP Pulse Ox 97.9 F 96 16 139/76 H 96 09/12/17 04:00 09/12/17 04:00 09/12/17 04:00 09/12/17 04:00 09/12/17 04:08 Pulse Oximeter Continuous Start: 09/11/17 17: 46 Freq: RTQ4 Status: Active Document 09/12/17 04:08 EAL (Rec: 09/12/17 04:09 EAL [email or web address]_) Pulse Oximetry Assessment Oxygen Saturation (92-100) 96 Oxygen Flow Rate (L/min) 2 Oxygen Delivery Method Nasal Cannula Fraction of Inspired Oxygen (FIO2) 28 Equipment Usage Initial Set Up Continuous Pulse Oximeter 24 Hour Charge Charge Now Continuous SpO2 Machine # 5 Intake & Output 09/11/17 09/12/17 09/13/17 06:59 06:59 06:59 Intake Total 440 Output Total 700 Balance -260 Weight 77.5 kg General appearance: PRESENT: no acute distress, well-developed Eye exam: PRESENT: conjunctiva pink, PERRLA Mouth exam: PRESENT: moist Neck exam: PRESENT: full ROM Respiratory exam: PRESENT: clear to auscultation annita, symmetrical, unlabored Cardiovascular exam: PRESENT: +S1, +S2 Pulses: PRESENT: normal radial pulses, normal dorsalis pedis pul Vascular exam: PRESENT: normal capillary refill GI/Abdominal exam: PRESENT: soft. ABSENT: tenderness Rectal exam: PRESENT: deferred Extremities exam: PRESENT: full ROM, joint swelling, pedal edema - Lower extremity lymphedema Musculoskeletal exam: PRESENT: full ROM Neurological exam: PRESENT: alert, awake, oriented to person, oriented to place , oriented to time, oriented to situation Psychiatric exam: PRESENT: appropriate affect Skin exam: PRESENT: normal color Results Laboratory Results: 09/12/17 06:08 09/12/17 06:08 09/12/17 09/12/17 06:08 06:08 WBC 4.7 RBC 4.32 Hgb 12.0 Hct 34.9 L MCV 81 MCH 27.8 MCHC 34.3 RDW 14.5 H Plt Count 161 Seg Neutrophils % 90.5 H Lymphocytes % 7.7 L Monocytes % 1.6 L Eosinophils % 0.0 Basophils % 0.2 Absolute Neutrophils 4.2 Absolute Lymphocytes 0.4 L Absolute Monocytes 0.1 Absolute Eosinophils 0.0 Absolute Basophils 0.0 Sodium 130.2 L Potassium 4.3 Chloride 94 L Carbon Dioxide 29 Anion Gap 7 BUN 7 Creatinine 0.46 L Est GFR ( Amer) > 60 Est GFR (Non-Af Amer) > 60 Glucose 162 H Calcium 10.1 Phosphorus 3.2 Magnesium 1.9 Impressions: Chest X-Ray 09/11/17 11:12 IMPRESSION: NO ACUTE RADIOGRAPHIC FINDING IN THE CHEST. Status: Imported from PACS Assessment & Plan - Diagnosis (1) COPD exacerbation Is this a current diagnosis for this admission?: Yes Plan: Patient presented to the emergency department with fatigue, and shortness of breath, and dyspnea on exertion Patient endorses history of recently being treated for URI CXR demonstrates chronic changes related to her COPD Restarted on home albuterol and budesonide Restarted on home Spiriva and Symbicort PRN DuoNeb and Xopenex Scheduled Solu-Medrol Patient encouraged to wear supplemental oxygen at all times As needed oxycodone (home dose) and Motrin for back/flank pain associated with coughing The patient denies productive cough, therefore I do not feel that she needs to be empirically covered for acute bronchitis. Additionally she is afebrile and has no leukocytosis. Continuous pulse oximetry (2) Rheumatoid arthritis Qualifiers: Rheumatoid arthritis location: unspecified site Rheumatoid factor presence : unspecified presence Qualified Code(s): M06.9 - Rheumatoid arthritis, unspecified Is this a current diagnosis for this admission?: Yes Plan: Patient of Dr. Myers Currently not taking immune modifying medication secondary to pyelonephritis infection and sepsis shortly after patient began immune modifying treatment. Medical Director Of Hospice advised against taking any immune modifying medication due to high risk of recurrence of systemic infection Patient currently manages pain related to rheumatoid arthritis with as needed oxycodone (3) Hypertension Qualifiers: Hypertension type: essential hypertension Qualified Code(s): I10 - Essential (primary) hypertension Is this a current diagnosis for this admission?: Yes Plan: Restart home dose valsartan (4) Anxiety Is this a current diagnosis for this admission?: Yes Plan: The patient endorses a history of anxiety and PTSD. She states she has been through a great deal of trauma within the last 5 years. Patient states that she was a healthy productive member of society approximately 3-4 years ago, she experienced a great deal of 'trauma' that she would not detail, but states all of her health problems began after a series of traumatic incidences. Continue home dose clonazepam and trazodone. Continue tizanidine for insomnia - Time Critical Time spent with patient: 15-24 minutes Anticipated discharge: Home Within: within 48 hours - Inpatient Certification Based on my medical assessment, after consideration of the patient's comorbidities, presenting symptoms, or acuity I expect that the services needed warrant INPATIENT care.: Yes I certify that my determination is in accordance with my understanding of Medicare's requirements for reasonable and necessary INPATIENT services [42 CFR 412.3e].: Yes Medical Necessity: Risk of Complication if Not Cared For in Hospital - Plan Summary Plan Summary: Plan is to manage her COPD exacerbation and ultimately discharge her home
[2017-09-12] MEDS: BUDESONIDE NEB 0.5 MG/2 ML AMPUL NEB SCH ×2 (08:44→20:18)
[2017-09-12] MEDS: IPRATROPIUM/ALBUTEROL 0.5-2.5 MG/3 ML AMPUL NEB PRN ×2 (08:49→14:48)
[2017-09-12] MEDS: BUDESONIDE/FORMOTEROL 160-4.5 MCG 60 PUFF/6 GM MDI IH SCH ×2 (11:00→21:32)
[2017-09-12] MEDS: VALSARTAN 40 MG TABLET PO SCH (11:01)
[2017-09-12] MEDS: TIOTROPIUM BROMIDE DPI 5 CAP/KIT (18 MCG/CAP) IH SCH (11:05)
[2017-09-12] MEDS ORDERED: DOXYCYCLINE HYCLATE 100 MG TABLET PO ONE (14:00)
--- NOTE | 2017-09-12 18:41 | PDOC PROGRESS REPORT ---
Subjective Progress Note for:: 09/12/17 Subjective:: KIKE ALTHAM is a 71 year old female who presented to the emergency department with a three-week history of SOB, fatigue, cough, and AUGUSTIN. She is admitted to the hospitalist service for COPD exacerbation. PMH includes COPD, rheumatoid arthritis, Raynaud's, fibromyalgia, lymphedema, anxiety. Patient was seen this morning on rounds. She is resting comfortably in bed on room air. Nursing staff reports that the patient ambulated in the hallways this morning and when she returned to her room her SPO2 was 83%. The patient states she feels much better compared to when she initially presented to the emergency department. She states that her upper back tightness and flank pain are gone. She states that she no longer feels fatigued. The patient does complain of a productive cough, she previously stated that her cough was nonproductive. The patient endorses coughing up thick yellow sputum this morning. Plan to cover with prophylactic antibiotics for acute bronchitis. Reason For Visit: COPD EXACERBATION Physical Exam Vital Signs: Temp Pulse Resp BP Pulse Ox 97.7 F 94 16 147/63 H 95 09/12/17 11:11 09/12/17 14:48 09/12/17 14:48 09/12/17 11:11 09/12/17 16:00 Pulse Oximeter Continuous Start: 09/11/17 17: 46 Freq: RTQ4 Status: Active Document 09/12/17 16:00 HCR (Rec: 09/12/17 17:42 HCR [email or web address]) Pulse Oximetry Assessment Oxygen Saturation (92-100) 95 Oxygen Delivery Method Room Air Fraction of Inspired Oxygen (FIO2) 21 Equipment Usage Equipment in Use Continuous SpO2 Machine # 5 Intake & Output 09/11/17 09/12/17 09/13/17 06:59 06:59 06:59 Intake Total 440 1017 Output Total 700 Balance -260 1017 Weight 77.5 kg General appearance: PRESENT: no acute distress Head exam: PRESENT: atraumatic Eye exam: PRESENT: conjunctiva pink, PERRLA Mouth exam: PRESENT: moist Neck exam: PRESENT: full ROM Respiratory exam: PRESENT: clear to auscultation annita, symmetrical, unlabored Cardiovascular exam: PRESENT: +S1, +S2 Pulses: PRESENT: normal radial pulses, normal dorsalis pedis pul GI/Abdominal exam: PRESENT: normal bowel sounds, soft. ABSENT: tenderness Rectal exam: PRESENT: deferred Extremities exam: PRESENT: full ROM, pedal edema - Chronic lymphedema Musculoskeletal exam: PRESENT: ambulatory, full ROM Neurological exam: PRESENT: alert, awake, oriented to person, oriented to place , oriented to time, oriented to situation, normal gait Psychiatric exam: PRESENT: appropriate affect Skin exam: PRESENT: normal color Results Laboratory Results: 09/12/17 06:08 09/12/17 06:08 09/12/17 09/12/17 06:08 06:08 WBC 4.7 RBC 4.32 Hgb 12.0 Hct 34.9 L MCV 81 MCH 27.8 MCHC 34.3 RDW 14.5 H Plt Count 161 Seg Neutrophils % 90.5 H Lymphocytes % 7.7 L Monocytes % 1.6 L Eosinophils % 0.0 Basophils % 0.2 Absolute Neutrophils 4.2 Absolute Lymphocytes 0.4 L Absolute Monocytes 0.1 Absolute Eosinophils 0.0 Absolute Basophils 0.0 Sodium 130.2 L Potassium 4.3 Chloride 94 L Carbon Dioxide 29 Anion Gap 7 BUN 7 Creatinine 0.46 L Est GFR ( Amer) > 60 Est GFR (Non-Af Amer) > 60 Glucose 162 H Calcium 10.1 Phosphorus 3.2 Magnesium 1.9 Impressions: Chest X-Ray 09/11/17 11:12 IMPRESSION: NO ACUTE RADIOGRAPHIC FINDING IN THE CHEST. Status: Imported from PACS Assessment & Plan - Diagnosis (1) COPD exacerbation Is this a current diagnosis for this admission?: Yes Plan: Patient presented to the emergency department with fatigue, and shortness of breath, and dyspnea on exertion Patient endorses history of recently being treated for URI CXR demonstrates chronic changes related to her COPD Initiate doxycycline for acute bronchitis given her statement that she is now coughing up thick yellow sputum. Restarted on home albuterol and budesonide Restarted on home Spiriva and Symbicort PRN DuoNeb and Xopenex Scheduled Solu-Medrol Patient encouraged to wear supplemental oxygen at all times, but has been seen ambulating around the unit without it. As needed oxycodone (home dose) and Motrin for back/flank pain associated with coughing Continuous pulse oximetry (2) Rheumatoid arthritis Qualifiers: Rheumatoid arthritis location: unspecified site Rheumatoid factor presence : unspecified presence Qualified Code(s): M06.9 - Rheumatoid arthritis, unspecified Is this a current diagnosis for this admission?: Yes Plan: Patient of Dr. Myers Currently not taking immune modifying medication secondary to pyelonephritis infection and sepsis shortly after patient began immune modifying treatment. Top Lift Cutter advised against taking any immune modifying medication due to high risk of recurrence of systemic infection Patient currently manages pain related to rheumatoid arthritis with as needed oxycodone (3) Hypertension Qualifiers: Hypertension type: essential hypertension Qualified Code(s): I10 - Essential (primary) hypertension Is this a current diagnosis for this admission?: Yes Plan: Restart home dose valsartan (4) Anxiety Is this a current diagnosis for this admission?: Yes Plan: The patient endorses a history of anxiety and PTSD. She states she has been through a great deal of trauma within the last 5 years. Patient states that she was a healthy productive member of society approximately 3-4 years ago, she experienced a great deal of 'trauma' that she would not detail, but states all of her health problems began after a series of traumatic incidences. Continue home dose clonazepam and trazodone. Continue tizanidine for insomnia - Time Time Spent with patient: 15-24 minutes Anticipated discharge: Home Within: within 48 hours - Inpatient Certification Based on my medical assessment, after consideration of the patient's comorbidities, presenting symptoms, or acuity I expect that the services needed warrant INPATIENT care.: Yes I certify that my determination is in accordance with my understanding of Medicare's requirements for reasonable and necessary INPATIENT services [42 CFR 412.3e].: Yes Medical Necessity: Risk of Complication if Not Cared For in Hospital - Plan Summary Plan Summary: Ultimately, the plan is to discharge the patient home if she can ambulate without becoming hypoxic. If not, it is possible that the patient will need to go home on home O2.
[2017-09-12] MEDS: DOXYCYCLINE HYCLATE 100 MG TABLET PO SCH (21:32)
[2017-09-12] MEDS: TIZANIDINE HCL 4 MG TABLET PO SCH (21:32)
[2017-09-12] MEDS ORDERED: TRAZODONE HCL 50 MG TABLET PO SCH (22:00)
[2017-09-13] MEDS: CLONAZEPAM 1 MG TABLET PO PRN (01:48)
[2017-09-13] MEDS: HEPARIN SOD (PORCINE) 5,000 UNIT/ML 1 ML SYRINGE SUBCUT SCH ×2 (06:42→14:17)
[2017-09-13] MEDS: METHYLPREDNISOLONE INJ 125 MG/2 ML SDV IV SCH (06:43)
[2017-09-13] MEDS: OXYCODONE HCL IR 5 MG TABLET PO PRN (06:46)
[2017-09-13] MEDS: LANSOPRAZOLE 30 MG TAB.RAP.DR PO SCH (06:47)
[2017-09-13] MEDS: IPRATROPIUM/ALBUTEROL 0.5-2.5 MG/3 ML AMPUL NEB PRN (08:04)
[2017-09-13] MEDS: BUDESONIDE NEB 0.5 MG/2 ML AMPUL NEB SCH (08:04)
[2017-09-13] MEDS: VALSARTAN 40 MG TABLET PO SCH (09:59)
[2017-09-13] MEDS: DOXYCYCLINE HYCLATE 100 MG TABLET PO SCH (09:59)
[2017-09-13] MEDS: BUDESONIDE/FORMOTEROL 160-4.5 MCG 60 PUFF/6 GM MDI IH SCH (10:00)
[2017-09-13] MEDS: TIOTROPIUM BROMIDE DPI 5 CAP/KIT (18 MCG/CAP) IH SCH (10:00)
[2017-09-13] MEDS ORDERED: METHYLPREDNISOLONE INJ 125 MG/2 ML SDV IV SCH (10:00)
--- NOTE | 2017-09-13 12:55 | Physician Advisory Note ---
Physician Advisor ProgressNote .: [facility] to the [facility] for [facility], I have reviewed the medical record for this patient. Physician Advisor Statement: Please consider documenting, if you agree: 1. "Acute Bronchitis", or what is being tx'd with abx, since COPD doesn't always require abx? 2. "Chronic hyponatremia, suspect due to " 3. ? - "Chronic Respiratory Failure requiring O2 2L at baseline" ? or not? - DCP note states she has O2 at home. She has used O2 part of tiime here.... Thanks! CK
[2017-09-13] MEDS ORDERED: ALBUTEROL SULFATE HFA (90 MCG/PUFF) 200 PUFF/8.5 GM MDI IH PRN (14:58)
[2017-09-13 15:27] VITALS: BP 136/75
== END 2017-09-13 15:40 | disposition home or self-care (01) ==
LOC: ER 11:00 → EH 15:46 → 4S 22:49
PROVIDERS: ADMIT Family Medicine; ATTEND Family Medicine
DX: J44.1 Chronic obstructive pulmonary disease with (acute) exacerbation (principal); M06.9 Rheumatoid arthritis, unspecified; F41.9 Anxiety disorder, unspecified; I10 Essential (primary) hypertension; M79.7 Fibromyalgia; Z87.891 Personal history of nicotine dependence
CPT/HCPCS: 93005; 94640 ×6; 99285; 96375; 96365; 36415 ×2; 82553; 82550; 83735; 84100; 85025 ×2; 80048; 80053; 84484; 83880; 71046; 93010; 94762 ×2; A9270 ×17; J1644; J3490 ×4; J2930 ×3; J1885; J3475; J1100; J7620

== ENCOUNTER 2017-12-29 10:00 | Emergency (ER) | payer MEDICARE, OTHER ==
[2017-12-29] MEDS ORDERED: NORMAL SALINE 1000 ML 1,000 ML IV ONE (10:18)
--- NOTE | 2017-12-29 10:20 | ER Document Report ---
ED Medical Screen (RME) - General Chief Complaint: Flank Pain Stated Complaint: FLANK PAIN Time Seen by Provider: 12/29/17 10:13 TRAVEL OUTSIDE OF THE [place] IN LAST 30 DAYS: No - HPI Notes: 12/29/17 10:19 Patient with multiple complaints constipation nausea right upper quadrant pain palpitations dysuria ongoing since last night. Patient states compliance with her medications. Patient states she is on 15 mg of oxycodone for her chronic pain. Denies any fevers chills nausea vomiting. Patient states normally does not run a fever. - Related Data Allergies/Adverse Reactions: Penicillins Allergy (Severe, Verified 12/29/17 10:01) rash at site of contact latex Allergy (Verified 12/29/17 10:01) peanut Allergy (Verified 12/29/17 10:01) Trouble Breathing/Wheezing Metals Allergy (Intermediate, Uncoded 12/29/17 10:01) reports rash at site of contact Past Medical History - Past Medical History Cardiac Medical History: Reports: Hx Hypertension, Hx Heart Murmur Denies: Hx Atrial Fibrillation, Hx Congestive Heart Failure, Hx Coronary Artery Disease, Hx Heart Attack, Hx Hypercholesterolemia, Hx Peripheral Vascular Disease, Hx Pulmonary Embolism Pulmonary Medical History: Reports: Hx Asthma - uses inhalers, Hx Bronchitis, Hx COPD, Hx Pneumonia, Hx Sleep Apnea - does not use CPAP Denies: Hx Respiratory Failure, Hx Tuberculosis Neurological Medical History: Reports: Hx Migraine. Denies: Hx Cerebrovascular Accident, Hx Seizures Endocrine Medical History: Renal/ Medical History: Denies: Hx End Stage Renal Disease, Hx Kidney Stones, Hx Ovarian Cysts, Hx Peritoneal Dialysis, Hx Pelvic Inflammatory Disease Malignancy Medical History: Denies: Hx Breast Cancer, Hx Cervical Cancer, Hx Leukemia, Hx Lung Cancer, Hx Ovarian Cancer GI Medical History: Reports: Hx Diverticulitis, Hx Gastroesophageal Reflux Disease - 30 years-takes med, Hx Hiatal Hernia - "sliding", Hx Irritable Bowel. Denies: Hx Crohn's Disease, Hx Liver Failure, Hx Pancreatitis, Hx Ulcer Musculoskeltal Medical History: Reports Hx Arthritis, Reports Hx Fibromyalgia - 20 yrs, Denies Hx Multiple Sclerosis, Denies Hx Muscular Dystrophy Psychiatric Medical History: Reports: Hx Anxiety, Hx Attention Deficit Hyperactivity Disorder, Hx Depression, Hx Post Traumatic Stress Disorder Denies: Hx Bipolar Disorder, Hx Dementia, Hx Schizophrenia Traumatic Medical History: Reports: Hx Fractures - neck-40 yrs ago Infectious Medical History: Denies: Hx HIV Past Surgical History: Reports: Hx Hysterectomy, Hx Orthopedic Surgery - Right knee, Hx Tonsillectomy - as an adult. Denies: Hx Adenoidectomy, Hx Appendectomy - ? removed during hysterectomy ?, Hx Bowel Surgery, Hx Section, Hx Cholecystectomy, Hx Colostomy, Hx Coronary Artery Bypass Graft, Hx Gastric Bypass Surgery, Hx Herniorrhaphy, Hx Mastectomy, Hx Pacemaker, Hx Tubal Ligation - Immunizations Hx Diphtheria, Pertussis, Tetanus Vaccination: Yes History of Influenza Vaccine for 03/2017 - 08/2017 Season: Refused Review of Systems - Review of Systems Constitutional: Other - Right upper quadrant pain nausea palpitations constipation Physical Exam - Vital signs Vitals: Temp Pulse Resp BP Pulse Ox 98.5 F 92 18 135/85 H 96 12/29/17 10:05 12/29/17 10:05 12/29/17 10:05 12/29/17 10:05 12/29/17 10:05 - Abdominal Tenderness: Tender - Tenderness to palpation of the right upper quadrant - Back Back: No: CVA tenderness Course - Vital Signs Vital signs: Temp Pulse Resp BP Pulse Ox 98.5 F 92 18 135/85 H 96 12/29/17 10:05 12/29/17 10:05 12/29/17 10:05 12/29/17 10:05 12/29/17 10:05 Doctor's Discharge - Discharge Referrals: ALPHONSE AGBRIEL PA-C [Primary Care Provider] - Follow up as needed
[2017-12-29 11:26] LABS: ABSOLUTE LYMPHOCYTES (AUTO) 1.1 10^3/uL (0.5-4.7); ABSOLUTE MONOCYTES (AUTO) 0.5 10^3/uL (0.1-1.4); ABSOLUTE NEUT (AUTO) 4.6 10^3/uL (1.7-8.2); BASOPHILS % (AUTO) 0.6 % (0-2); EOSINOPHILS % (AUTO) 0.7 % (0-6); HEMATOCRIT 35.8 % (36.0-47.0); LYMPHOCYTES % (AUTO) 18.1 % (13-45); MEAN CORPUSCULAR HEMOGLOBIN 27.2 pg (27.0-33.4); MEAN CORPUSCULAR HGB CONC 33.7 g/dL (32.0-36.0); MEAN CORPUSCULAR VOLUME 81 fl (80-97); MONOCYTES % (AUTO) 7.7 % (3-13); PLATELET COUNT 186 10^3/uL (150-450); RED BLOOD COUNT 4.43 10^6/uL (3.72-5.28); RED CELL DISTRIBUTION WIDTH 14.8 % (11.5-14.0); SEGMENTED NEUTROPHILS % (AUTO) 72.9 % (42-78); TOTAL CELLS COUNTED % (AUTO) 100 %; WHITE BLOOD COUNT 6.3 10^3/uL (4.0-10.5)
[2017-12-29 11:52] LABS: ALANINE AMINOTRANSFERASE 29 U/L (9-52); ALBUMIN 4.1 g/dL (3.5-5.0); ALKALINE PHOSPHATASE 55 U/L (38-126); ANION GAP 9 (5-19); ASPARTATE AMINO TRANSFERASE 18 U/L (14-36); BILIRUBIN,DIRECT 0.1 mg/dL (0.0-0.4); BILIRUBIN,TOTAL 0.6 mg/dL (0.2-1.3); BLOOD UREA NITROGEN 7 mg/dL (7-20); CALCIUM 9.4 mg/dL (8.4-10.2); CARBON DIOXIDE 28 mmol/L (22-30); CHLORIDE 94 mmol/L (98-107); GLUCOSE 92 mg/dL (75-110); LIPASE 36.6 U/L (23-300); POTASSIUM 4.3 mmol/L (3.6-5.0); TOTAL PROTEIN 6.6 g/dL (6.3-8.2)
[2017-12-29 12:11] LABS: APPEARANCE,URINE CLEAR; BILIRUBIN,URINE NEGATIVE (NEGATIVE); COLOR,URINE STRAW; GLUCOSE, URINE NEGATIVE (NEGATIVE); KETONES,URINE NEGATIVE (NEGATIVE); LEUKOCYTE ESTERASE,URINE NEGATIVE (NEGATIVE); NITRITE,URINE NEGATIVE (NEGATIVE); PROTEIN,URINE NEGATIVE (NEGATIVE); URINE SPECIFIC GRAVITY 1.003; UROBILINOGEN,URINE NEGATIVE mg/dL (<2.0)
--- NOTE | 2017-12-29 12:35 | RADIOLOGY REPORT (SQ) ---
EXAM DESCRIPTION: U/S ABDOMEN LIMITED W/O DOP COMPLETED DATE/TIME: 12/29/2017 12:10 pm REASON FOR STUDY: ruq pain COMPARISON: None. TECHNIQUE: Dynamic and static grayscale images acquired of the abdomen and recorded on PACS. Additio nal selected color Doppler and spectral images recorded. LIMITATIONS: None. FINDINGS: PANCREAS: Not well visualized secondary to body habitus and bowel gas. LIVER: No masses. Echotexture normal. LIVER VASCULATURE: Normal directional flow of the main portal vein. GALLBLADDER: No stones. Normal wall thickness. No pericholecystic fluid. ULTRASOUND-DETECTED ADAMES'S SIGN: Negative. INTRAHEPATIC DUCTS AND COMMON DUCT: CBD and intrahepatic ducts normal caliber. No filling defects. AORTA: No aneurysm. RIGHT KIDNEY: Normal size. Normal echogenicity. No solid or suspicious masses. No hydronephrosis. No calcifications. PERITONEAL AND RIGHT PLEURAL SPACE: No ascites or effusions. OTHER: No other significant findings. IMPRESSION: Nonvisualization of the pancreas, otherwise unremarkable right upper quadrant ultrasound . TECHNICAL DOCUMENTATION: JOB ID: [id number] 7139[employer]- All Rights Reserved Reading location - IP/workstation name: [email or web address]
--- NOTE | 2017-12-29 13:59 | RADIOLOGY REPORT (SQ) ---
EXAM DESCRIPTION: CT LTD RENAL STONE PROTOCOL ON COMPLETED DATE/TIME: 12/29/2017 1:27 pm REASON FOR STUDY: r flank pain COMPARISON: None. TECHNIQUE: CT scan of the abdomen and pelvis performed without intravenous or oral contrast. Images reviewed with lung, soft tissue, and bone windows. Reconstructed coronal and sagittal MPR images revi ewed. All images stored on PACS. All CT scanners at this facility use dose modulation, iterative reconstruction, and/or weight based d osing when appropriate to reduce radiation dose to as low as reasonably achievable (ALARA). [facility]: Dose Right [facility]: CareDose [facility]: Dose Right [facility]: Teradose 4D [facility]: [employer] RADIATION DOSE: CT Rad equipment meets quality standard of care and radiation dose reduction techniq ues were employed. CTDIvol: 12.2 mGy. DLP: 603 mGy-cm.mGy. LIMITATIONS: None. FINDINGS: LOWER CHEST: Chronic scarring in lung bases. NON-CONTRASTED LIVER, SPLEEN, ADRENALS: Liver: Small rounded area decreased attenuation right lobe of liver consistent with hepatic cyst. Spleen: No abnormality. Adrenals: No abnormality. PANCREAS: No abnormality. GALLBLADDER: No abnormality. RIGHT KIDNEY AND URETER: No abnormality. No renal or ureteral calculi. LEFT KIDNEY AND URETER: No abnormality. AORTA AND RETROPERITONEUM: Atherosclerotic change of the abdominal aorta and iliac vessels. BOWEL AND PERITONEAL CAVITY: Colonic diverticulosis. PELVIS, BLADDER, AND ABDOMINAL WALL: Uterus: Absent. Urinary bladder: No abnormality. Large and sm all bowel: Diverticulosis. Changes of a hiatal hernia. BONES: Multilevel lumbar spondylosis and degenerative disc disease. Degenerative anterolisthesis of L4 on L5. Relative acquired stenosis at L4-5. Degenerative disc disease at L1-2 ,L2-3, L4-5, and L5 -S1. IMPRESSION: NO SIGNIFICANT ABNORMALITY IDENTIFIED. COMMENT: Quality ID # [id number]: Final reports with documentation of one or more dose reduction techniques (e.g., Automated exposure control, adjustment of the mA and/or kV according to patient size, use of iterative reconstruction technique) TECHNICAL DOCUMENTATION: JOB ID: [id number] SC-[id number] 2010 [employer]- All Rights Reserved Reading location - IP/workstation name: [email or web address]
--- NOTE | 2017-12-29 14:04 | RADIOLOGY REPORT (SQ) ---
EXAM DESCRIPTION: CHEST 2 VIEWS COMPLETED DATE/TIME: 12/29/2017 1:38 pm REASON FOR STUDY: sob, cough COMPARISON: None. EXAM PARAMETERS: NUMBER OF VIEWS: two views TECHNIQUE: Digital Frontal and Lateral radiographic views of the chest acquired. RADIATION DOSE: NA LIMITATIONS: none FINDINGS: LUNGS AND PLEURA: No acute infiltrates or effusions. Chronic scarring left lung base. MEDIASTINUM AND HILAR STRUCTURES: No masses or contour abnormalities. HEART AND VASCULAR STRUCTURES: The heart is normal. The pulmonary vasculature is normal. BONES: No acute findings. HARDWARE: Changes of cervical fusion. OTHER: No other significant finding. IMPRESSION: NO SIGNIFICANT INTERVAL CHANGE. TECHNICAL DOCUMENTATION: JOB ID: [id number] 2010 [employer]- All Rights Reserved Reading location - IP/workstation name: [email or web address]
--- NOTE | 2017-12-29 14:40 | ER Document Report ---
ED GI/ - General Chief Complaint: Flank Pain Stated Complaint: FLANK PAIN Time Seen by Provider: 12/29/17 10:13 Mode of Arrival: Ambulatory Information source: Patient Notes: Patient presents complaining of right lateral side pain for the past 3 days. Patient reports decreased urine output. Patient also reports cough for the past 3 days as well. Patient states that she has had episodes of diaphoresis. Patient denies any fever. Patient states that she has had palpitations off and on over the past week. Patient denies any chest pain. TRAVEL OUTSIDE OF THE [place] IN LAST 30 DAYS: No - HPI Patient complains to provider of: Other - Right lateral side pain. No: Vomiting Onset: Other - 3 days Timing/Duration: Waxing and waning Quality of pain: Sharp Pain Level: 2 Location: Other - Right lateral side Vaginal bleeding (Compared to normal period): None Associated symptoms: denies: Constipation, Diarrhea, Dysuria, Fever, Nausea, Urinary hesitancy, Urinary frequency, Vomiting Exacerbated by: Denies Relieved by: Denies Similar symptoms previously: Yes Recently seen / treated by doctor: No - Related Data Allergies/Adverse Reactions: Penicillins Allergy (Severe, Verified 12/29/17 10:01) rash at site of contact latex Allergy (Verified 12/29/17 10:01) peanut Allergy (Verified 12/29/17 10:01) Trouble Breathing/Wheezing Metals Allergy (Intermediate, Uncoded 12/29/17 10:01) reports rash at site of contact Past Medical History - General Information source: Patient - Social History Smoking Status: Former Smoker Chew tobacco use (# tins/day): No Frequency of alcohol use: None Drug Abuse: None Lives with: Alone Family History: Hypertension Patient has suicidal ideation: No Patient has homicidal ideation: No - Past Medical History Cardiac Medical History: Reports: Hx Hypertension, Hx Heart Murmur Denies: Hx Atrial Fibrillation, Hx Congestive Heart Failure, Hx Coronary Artery Disease, Hx Heart Attack, Hx Hypercholesterolemia, Hx Peripheral Vascular Disease, Hx Pulmonary Embolism Pulmonary Medical History: Reports: Hx Asthma - uses inhalers, Hx Bronchitis, Hx COPD, Hx Pneumonia, Hx Sleep Apnea - does not use CPAP Denies: Hx Respiratory Failure, Hx Tuberculosis Neurological Medical History: Reports: Hx Migraine. Denies: Hx Cerebrovascular Accident, Hx Seizures Endocrine Medical History: Renal/ Medical History: Denies: Hx End Stage Renal Disease, Hx Kidney Stones, Hx Ovarian Cysts, Hx Peritoneal Dialysis, Hx Pelvic Inflammatory Disease Malignancy Medical History: Denies: Hx Breast Cancer, Hx Cervical Cancer, Hx Leukemia, Hx Lung Cancer, Hx Ovarian Cancer GI Medical History: Reports: Hx Diverticulitis, Hx Gastroesophageal Reflux Disease - 30 years-takes med, Hx Hiatal Hernia - "sliding", Hx Irritable Bowel. Denies: Hx Crohn's Disease, Hx Liver Failure, Hx Pancreatitis, Hx Ulcer Musculoskeletal Medical History: Reports Hx Arthritis, Reports Hx Fibromyalgia - 20 yrs, Denies Hx Multiple Sclerosis, Denies Hx Muscular Dystrophy Psychiatric Medical History: Reports: Hx Anxiety, Hx Attention Deficit Hyperactivity Disorder, Hx Depression, Hx Post Traumatic Stress Disorder Denies: Hx Bipolar Disorder, Hx Dementia, Hx Schizophrenia Traumatic Medical History: Reports: Hx Fractures - neck-40 yrs ago Infectious Medical History: Denies: Hx HIV Past Surgical History: Reports: Hx Hysterectomy, Hx Orthopedic Surgery - Right knee, Hx Tonsillectomy - as an adult. Denies: Hx Adenoidectomy, Hx Appendectomy - ? removed during hysterectomy ?, Hx Bowel Surgery, Hx Section, Hx Cholecystectomy, Hx Colostomy, Hx Coronary Artery Bypass Graft, Hx Gastric Bypass Surgery, Hx Herniorrhaphy, Hx Mastectomy, Hx Pacemaker, Hx Tubal Ligation - Immunizations Hx Diphtheria, Pertussis, Tetanus Vaccination: Yes Hx Pneumococcal Vaccination: 01/09/10 Review of Systems - Review of Systems Constitutional: No symptoms reported. denies: Fever, Recent illness EENT: No symptoms reported Cardiovascular: Palpitations. denies: Chest pain Respiratory: Cough, Short of breath Gastrointestinal: Abdominal pain - Right lateral side. denies: Diarrhea, Nausea , Vomiting, Constipation, Poor appetite Genitourinary: Flank pain - Right lateral side. denies: Dysuria Female Genitourinary: No symptoms reported Musculoskeletal: No symptoms reported Skin: No symptoms reported Hematologic/Lymphatic: No symptoms reported Neurological/Psychological: No symptoms reported Physical Exam - Vital signs Vitals: Temp Pulse Resp BP Pulse Ox 98.5 F 92 18 135/85 H 96 12/29/17 10:05 12/29/17 10:05 12/29/17 10:05 12/29/17 10:05 12/29/17 10:05 - General General appearance: Appears well, Alert In distress: None - HEENT Head: Normocephalic, Atraumatic Eyes: Normal Conjunctiva: Normal Nasal: Normal Mouth/Lips: Normal Mucous membranes: Normal Pharynx: Normal Neck: Normal, Supple. No: Lymphadenopathy, Meningismus - Respiratory Respiratory status: No respiratory distress Chest status: Nontender Breath sounds: Normal. No: Rales, Rhonchi, Stridor, Wheezing Chest palpation: Normal - Cardiovascular Rhythm: Regular Heart sounds: S1 appreciated, S2 appreciated - Abdominal Inspection: Normal Distension: No distension Bowel sounds: Normal Tenderness: Nontender Organomegaly: No organomegaly - Back Back: Tender - right lateral side - Extremities General upper extremity: Normal inspection, Normal ROM General lower extremity: Normal inspection, Normal ROM - Neurological Neuro grossly intact: Yes Cognition: Normal [place] Coma Scale Eye Opening: Spontaneous [place] Coma Scale Verbal: Oriented Noah Coma Scale Motor: Obeys Commands [place] Coma Scale Total: 15 - Psychological Associated symptoms: Normal affect, Normal mood - Skin Skin Temperature: Warm Skin Moisture: Dry Skin Color: Normal Course - Re-evaluation Re-evalutation: 12/29/17 14:56 Patient continues with right lateral side tenderness that comes and goes. Patient states that she feels like something is moving in her abdomen. Patient states that she has been having regular bowel movements. Ultrasound reviewed, no concern for acute cholecystitis. Patient has had a recent HIDA scan earlier this year that was negative. Patient without any inflammatory, obstructive or acute surgical findings noted on limited CT scan. Review of survey film does demonstrate large stool burden that coincides with patient's area of tenderness. Laboratory findings otherwise unremarkable. Patient encouraged to resume taking her MiraLAX at home and to follow-up with her GI specialist. Patient presents with abdominal pain without signs of peritonitis or other life- threatening or serious etiology. Patient appears stable for discharge and has been instructed to return immediately if the symptoms worsen in any way, or in 8 -12 hours if not improved for reevaluation. The patient has been instructed to return if the symptoms worsen or change in any way. - Vital Signs Vital signs: Temp Pulse Resp BP Pulse Ox 98.4 F 92 14 160/87 H 94 12/29/17 15:06 12/29/17 10:05 12/29/17 15:01 12/29/17 15:00 12/29/17 15:01 - Laboratory Result Diagrams: 12/29/17 11:00 12/29/17 11:00 Laboratory results interpreted by me: 12/29/17 12/29/17 11:00 11:00 Hct 35.8 L RDW 14.8 H Sodium 131.0 L Chloride 94 L Creatinine 0.50 L 12/29/17 18:26 Labs- Entire Visit 12/29/17 12/29/17 12/29/17 11:00 11:00 11:00 WBC 6.3 RBC 4.43 Hgb 12.0 Hct 35.8 L MCV 81 MCH 27.2 MCHC 33.7 RDW 14.8 H Plt Count 186 Seg Neutrophils % 72.9 Lymphocytes % 18.1 Monocytes % 7.7 Eosinophils % 0.7 Basophils % 0.6 Absolute Neutrophils 4.6 Absolute Lymphocytes 1.1 Absolute Monocytes 0.5 Absolute Eosinophils 0.0 Absolute Basophils 0.0 Sodium 131.0 L Potassium 4.3 Chloride 94 L Carbon Dioxide 28 Anion Gap 9 BUN 7 Creatinine 0.50 L Est GFR ( Amer) > 60 Est GFR (Non-Af Amer) > 60 Glucose 92 Calcium 9.4 Total Bilirubin 0.6 Direct Bilirubin 0.1 Neonat Total Bilirubin Not Reportable Neonat Direct Bilirubin Not Reportable Neonat Indirect Bili Not Reportable AST 18 ALT 29 Alkaline Phosphatase 55 Troponin I < 0.012 Total Protein 6.6 Albumin 4.1 Lipase 36.6 TSH Urine Color Urine Appearance Urine pH Ur Specific [place] Urine Protein Urine Glucose (UA) Urine Ketones Urine Blood Urine Nitrite Urine Bilirubin Urine Urobilinogen Ur Leukocyte Esterase Urine WBC (Auto) Urine RBC (Auto) Urine Mucus (Auto) Urine Ascorbic Acid 12/29/17 12/29/17 11:00 11:48 WBC RBC Hgb Hct MCV MCH MCHC RDW Plt Count Seg Neutrophils % Lymphocytes % Monocytes % Eosinophils % Basophils % Absolute Neutrophils Absolute Lymphocytes Absolute Monocytes Absolute Eosinophils Absolute Basophils Sodium Potassium Chloride Carbon Dioxide Anion Gap BUN Creatinine Est GFR ( Amer) Est GFR (Non-Af Amer) Glucose Calcium Total Bilirubin Direct Bilirubin Neonat Total Bilirubin Neonat Direct Bilirubin Neonat Indirect Bili AST ALT Alkaline Phosphatase Troponin I Total Protein Albumin Lipase TSH 0.69 Urine Color STRAW Urine Appearance CLEAR Urine pH 7.0 Ur Specific [place] 1.003 Urine Protein NEGATIVE Urine Glucose (UA) NEGATIVE Urine Ketones NEGATIVE Urine Blood NEGATIVE Urine Nitrite NEGATIVE Urine Bilirubin NEGATIVE Urine Urobilinogen NEGATIVE Ur Leukocyte Esterase NEGATIVE Urine WBC (Auto) 1 Urine RBC (Auto) 0 Urine Mucus (Auto) RARE Urine Ascorbic Acid NEGATIVE - Diagnostic Test Radiology reviewed: Image reviewed, Reports reviewed Discharge - Discharge Clinical Impression: Side pain Constipation Qualifiers: Constipation type: unspecified constipation type Qualified Code(s): K59.00 - Constipation, unspecified Condition: Stable Disposition: HOME, SELF-CARE Instructions: Abdominal Pain ([facility]), Constipation ([facility]) Additional Instructions: Return immediately for any new or worsening symptoms Followup with your primary care provider, call tomorrow to make a followup appointment Follow-up with your tuber operator for recheck, call Sunday for an appointment Referrals: ALPHONSE GABRIEL PA-C [Primary Care Provider] - 12/31/17 NIOK QUESADA MD [ACTIVE STAFF] - Follow up as needed
[2017-12-29] MEDS ORDERED: MAGNESIUM CITRATE 296 ML BOTTLE PO ONE (14:56)
[2017-12-29 15:06] VITALS: BP 160/87
--- NOTE | 2017-12-29 22:09 | EKG REPORT ---
SEVERITY:- NORMAL ECG - SINUS RHYTHM : Confirmed by: Tamera Velazquez 29-Dec-2017 22:08:39
== END 2017-12-29 15:22 | disposition home or self-care (01) ==
LOC: ER 10:00
DX: R10.9 Unspecified abdominal pain (principal); K59.00 Constipation, unspecified; R06.02 Shortness of breath; R05 Cough; I10 Essential (primary) hypertension; Z88.0 Allergy status to penicillin; Z91.040 Latex allergy status; Z91.010 Allergy to peanuts; Z87.891 Personal history of nicotine dependence; Z90.710 Acquired absence of both cervix and uterus
CPT/HCPCS: 93005; 99285; 96360; 36415; 83690; 84443; 85025; 80053; 81001; 84484; 71046; 76705; 76380; 93010; J3490; J7030